=== PATIENT | female | born 1970 | race Caucasian/White ===

== ENCOUNTER 2017-05-17 20:08 | Inpatient (IN) | payer OTHER ==
[~2017-05-17] VITALS: Ht 157.5 cm; Wt 79.5 kg
[2017-05-17 21:53] VITALS: Ht 157.5 cm; Wt 79.5 kg
[2017-05-18 02:16] LABS: BASOPHIL % 0.5 % (0-2); PLATELET COUNT 182 x10^3mcL (130-400)
[2017-05-18 02:22] LABS: RED CELL DISTRIBUTION WIDTH 14.7 % (11.5-14.5)
[2017-05-18 02:24] LABS: BILIRUBIN TOTAL 0.6 mg/dL (0.20-1.00); CALCIUM 8.7 mg/dL (8.5-10.1); CARBON DIOXIDE 34.8 mmol/L (21-32); POTASSIUM SERUM 3.5 mmol/L (3.5-5.1); TOTAL PROTEIN, SERUM 7.3 g/dL (6.4-8.2)
[2017-05-18 02:26] LABS: ALBUMIN 2.7 g/dL (3.4-5.0)
[2017-05-18 02:28] LABS: CREATININE SERUM 4.3 mg/dL (0.6-1.0)
[2017-05-18] MEDS ORDERED: GLIPIZIDE ER2.5 M1 (05:29)
[2017-05-18] MEDS ORDERED: SYNTHROID0.05 MG (05:30)
[2017-05-18] MEDS ORDERED: NIFEDICAL XL30 MG (05:30)
[2017-05-18] MEDS ORDERED: ATORVASTATIN CA40 M1 (05:30)
[2017-05-18 09:03] LABS: T3 TOTAL 0.64 ng/mL
[2017-05-18 09:16] LABS: FREE T4 1.25 ng/dL (0.76-1.46); FREE THYROXINE INDEX 2.8 ug/dL (1.4-4.5); T4(THYROXINE) 7.8 ug/dL (4.7-13.3)
[2017-05-18 09:48] VITALS: BP 123/68
[2017-05-18 10:13] VITALS: BP 123/68
[2017-05-18 10:20] LABS: CHOLESTEROL/HDL RATIO 3.4; PHOSPHOROUS 3.7 mg/dL (2.5-4.9)
[2017-05-18 13:40] VITALS: BP 124/61
[2017-05-18 17:25] VITALS: BP 153/89
[2017-05-18 21:16] VITALS: BP 154/81
[2017-05-19 06:05] VITALS: BP 136/68
[2017-05-19 06:59] LABS: PLATELET COUNT 190 x10^3mcL (130-400); RED CELL DISTRIBUTION WIDTH 14.5 % (11.5-14.5)
[2017-05-19 07:12] LABS: CALCIUM 8.8 mg/dL (8.5-10.1); CARBON DIOXIDE 25.3 mmol/L (21-32); MAGNESIUM 2.2 mg/dL (1.8-2.4); PHOSPHOROUS 4.7 mg/dL (2.5-4.9)
[2017-05-19 07:14] LABS: BASOPHIL % 0 % (0-2)
[2017-05-19 08:42] LABS: CREATININE SERUM 6.3 mg/dL (0.6-1.0)
[2017-05-19 08:53] VITALS: BP 127/60
[2017-05-19 13:06] VITALS: BP 124/62
[2017-05-19] MEDS ORDERED: MEDDP PO (15:18)
[2017-05-19 16:51] VITALS: BP 124/62
[2017-05-19 17:38] VITALS: BP 142/80
[2017-05-19 21:00] VITALS: BP 140/62
[2017-05-19 21:15] LABS: UA SPECIFIC GRAVITY 1.015 (1.005-1.035); microscopic required? YES; urine erythrocyte 1+ (NEGATIVE)
[2017-05-19 21:27] LABS: AMPHETAMINE QUAL UR NONE DETECTED (NEG <=1000)
[2017-05-20 05:54] VITALS: BP 141/73
[2017-05-20 08:30] LABS: CALCIUM 8.5 mg/dL (8.5-10.1); CARBON DIOXIDE 22.5 mmol/L (21-32); POTASSIUM SERUM 3.7 mmol/L (3.5-5.1)
[2017-05-20 08:32] LABS: CREATININE SERUM 7.3 mg/dL (0.6-1.0)
[2017-05-20 08:39] LABS: PLATELET COUNT 212 x10^3mcL (130-400); RED CELL DISTRIBUTION WIDTH 14.3 % (11.5-14.5)
[2017-05-20 08:41] LABS: BASOPHIL % 0 % (0-2)
[2017-05-20 09:06] VITALS: BP 139/69
[2017-05-20 14:10] VITALS: BP 135/70
[2017-05-20 18:00] VITALS: BP 150/80
[2017-05-20 20:38] VITALS: BP 154/76
[2017-05-21 05:07] VITALS: BP 171/90
[2017-05-21 07:14] LABS: BASOPHIL % 0.2 % (0-2); PLATELET COUNT 185 x10^3mcL (130-400)
[2017-05-21 07:21] LABS: CALCIUM 7.9 mg/dL (8.5-10.1); CARBON DIOXIDE 24.1 mmol/L (21-32); MAGNESIUM 1.9 mg/dL (1.8-2.4); PHOSPHOROUS 5.3 mg/dL (2.5-4.9); POTASSIUM SERUM 3.6 mmol/L (3.5-5.1)
[2017-05-21 07:24] LABS: CREATININE SERUM 5.8 mg/dL (0.6-1.0); RED CELL DISTRIBUTION WIDTH 14.7 % (11.5-14.5)
[2017-05-21 09:40] VITALS: BP 145/73
[2017-05-21 12:02] VITALS: BP 117/60; BP 145/73
[2017-05-21] MEDS ORDERED: ADA30 PO (12:03)
[2017-05-21] MEDS ORDERED: LEVEMIR100 U/M1 SQ ×2 (12:04→14:07)
[2017-05-21] MEDS ORDERED: ATORVASTATIN CA40 M1 PO (12:05)
[2017-05-21] MEDS ORDERED: GLU10 PO (12:05)
[2017-05-21] MEDS ORDERED: CLINDAMYCIN300 M1 PO (12:19)
[2017-05-21] MEDS ORDERED: LAC PO (12:19)
[2017-05-21 13:24] VITALS: BP 144/73
[2017-05-21 17:23] VITALS: BP 117/60
== END 2017-05-21 18:34 | disposition home or self-care (01) | DRG 811 ==
LOC: ED 20:08 → DU 05-18 04:29
PROVIDERS: Emergency Medicine; Internal Medicine Nephrology; Student in an Organized Health Care Education/Training Program
PROC: 02H633Z Insertion of Infusion Device into Right Atrium, Percutaneous Approach (ICD-10-PCS; principal; 2017-05-20)
PROC: 5A1D70Z Performance of Urinary Filtration, Intermittent, Less than 6 Hours Per Day (ICD-10-PCS; 2017-05-20)
DX: T78.3XXA Angioneurotic edema, initial encounter (principal); N17.0 Acute kidney failure with tubular necrosis; E43 Unspecified severe protein-calorie malnutrition; I12.0 Hypertensive chronic kidney disease with stage 5 chronic kidney disease or end stage renal disease; N18.6 End stage renal disease; R65.10 Systemic inflammatory response syndrome (SIRS) of non-infectious origin without acute organ dysfunction; E11.21 Type 2 diabetes mellitus with diabetic nephropathy; E87.1 Hypo-osmolality and hyponatremia; E11.65 Type 2 diabetes mellitus with hyperglycemia; D63.1 Anemia in chronic kidney disease; E66.9 Obesity, unspecified; E03.9 Hypothyroidism, unspecified; R09.02 Hypoxemia; Z99.2 Dependence on renal dialysis; Z79.4 Long term (current) use of insulin; Z68.30 Body mass index [BMI] 30.0-30.9, adult; E11.22 Type 2 diabetes mellitus with diabetic chronic kidney disease; E78.00 Pure hypercholesterolemia, unspecified; Z83.3 Family history of diabetes mellitus; Z82.49 Family history of ischemic heart disease and other diseases of the circulatory system; Z90.710 Acquired absence of both cervix and uterus; Z90.721 Acquired absence of ovaries, unilateral
CPT/HCPCS: 76770; 82962; 83880; 84439; 87804; 94150; J1815; J2543; J2920; J2930; J2997; J7030; J7620; Q0092

== ENCOUNTER 2017-10-10 17:20 | Emergency (ER) | payer OTHER ==
[~2017-10-10] VITALS: Ht 162.6 cm; Wt 75.3 kg
[~2017-10-10 17:20] MED LIST: ADA30 PO; ATORVASTATIN CA40 M1; ATORVASTATIN CA40 M1 PO; CLINDAMYCIN300 M1 PO; GLIPIZIDE ER2.5 M1; GLU10 PO; LAC PO; LEVEMIR100 U/M1 SQ; MEDDP PO; NIFEDICAL XL30 MG; SYNTHROID0.05 MG
[2017-10-10 17:27] VITALS: Ht 162.6 cm; Wt 75.3 kg
[2017-10-10 18:45] LABS: CALCIUM 9.4 mg/dL (8.5-10.1); POTASSIUM SERUM 5.4 mmol/L (3.5-5.1)
[2017-10-10 18:53] LABS: CREATININE SERUM 4.5 mg/dL (0.6-1.0)
[2017-10-10 19:52] VITALS: BP 130/82
== END 2017-10-10 20:50 | disposition home or self-care (01) ==
LOC: ED 17:20
PROVIDERS: Specialist
DX: E11.22 Type 2 diabetes mellitus with diabetic chronic kidney disease (principal); I12.9 Hypertensive chronic kidney disease with stage 1 through stage 4 chronic kidney disease, or unspecified chronic kidney disease; N18.9 Chronic kidney disease, unspecified; Z90.49 Acquired absence of other specified parts of digestive tract; Z90.710 Acquired absence of both cervix and uterus
CPT/HCPCS: 82962; J1815

== ENCOUNTER 2018-03-06 18:55 | Inpatient (IN) | payer OTHER ==
[~2018-03-06] VITALS: Ht 154.9 cm; Wt 77.6 kg
[2018-03-06 19:56] LABS: BASOPHIL % 0.4 % (0-2); PLATELET COUNT 331 x10^3mcL (130-400); RED CELL DISTRIBUTION WIDTH 17.9 % (11.5-14.5)
[2018-03-06 20:13] LABS: BILIRUBIN TOTAL 1.1 mg/dL (0.20-1.00); CALCIUM 8.7 mg/dL (8.5-10.1); CARBON DIOXIDE 26.1 mmol/L (21-32); POTASSIUM SERUM 4.5 mmol/L (3.5-5.1); TOTAL PROTEIN, SERUM 7.3 g/dL (6.4-8.2)
[2018-03-06 20:20] LABS: ALBUMIN 3.2 g/dL (3.4-5.0)
[2018-03-06 20:22] LABS: CREATININE SERUM 5.5 mg/dL (0.6-1.0)
[2018-03-06 21:18] LABS: PHOSPHOROUS 4.6 mg/dL (2.5-4.9)
[2018-03-06 21:21] LABS: CHOLESTEROL/HDL RATIO 2.7
[2018-03-06] MEDS ORDERED: SYNTHROID25 MCG PO (21:21)
[2018-03-06 21:59] VITALS: BP 134/63
[2018-03-06 23:46] LABS: microscopic required? YES; urine erythrocyte 2+ (NEGATIVE)
[2018-03-07] LABS: AMPHETAMINE QUAL UR NONE DETECTED (See below)
[2018-03-07 05:18] VITALS: BP 120/93
[2018-03-07 06:01] LABS: BASOPHIL % 0.3 % (0-2); PLATELET COUNT 305 x10^3mcL (130-400)
[2018-03-07 06:53] LABS: MAGNESIUM 2.3 mg/dL (1.8-2.4); PHOSPHOROUS 5.2 mg/dL (2.5-4.9); POTASSIUM SERUM 4.5 mmol/L (3.5-5.1)
[2018-03-07 07:05] LABS: CREATININE SERUM 6.2 mg/dL (0.6-1.0)
[2018-03-07 07:15] LABS: RED CELL DISTRIBUTION WIDTH 18.1 % (11.5-14.5)
[2018-03-07 08:19] VITALS: BP 103/60
[2018-03-07 12:24] VITALS: BP 101/48
[2018-03-07 16:40] VITALS: BP 104/40
[2018-03-07 20:29] VITALS: BP 120/60
[2018-03-08 05:10] VITALS: BP 134/71
[2018-03-08 10:04] VITALS: BP 109/66
[2018-03-08 14:20] VITALS: BP 106/62
[2018-03-08 17:45] VITALS: BP 123/63
[2018-03-09] VITALS (7 sets, daily range): BP systolic 95–132; BP diastolic 45–69
[2018-03-09 06:53] LABS: BASOPHIL % 0.5 % (0-2); PLATELET COUNT 277 x10^3mcL (130-400)
[2018-03-09 06:59] LABS: RED CELL DISTRIBUTION WIDTH 17.1 % (11.5-14.5)
[2018-03-09 07:06] LABS: CALCIUM 8.7 mg/dL (8.5-10.1); CARBON DIOXIDE 27.8 mmol/L (21-32); MAGNESIUM 1.7 mg/dL (1.8-2.4); PHOSPHOROUS 4.6 mg/dL (2.5-4.9); POTASSIUM SERUM 3.8 mmol/L (3.5-5.1)
[2018-03-09 07:09] LABS: CREATININE SERUM 4.3 mg/dL (0.6-1.0)
[2018-03-10 05:10] LABS: BASOPHIL % 0.5 % (0-2); PLATELET COUNT 252 x10^3mcL (130-400)
[2018-03-10 05:20] LABS: RED CELL DISTRIBUTION WIDTH 18.9 % (11.5-14.5)
[2018-03-10 05:40] LABS: CALCIUM 8.5 mg/dL (8.5-10.1); CARBON DIOXIDE 27.5 mmol/L (21-32); MAGNESIUM 1.8 mg/dL (1.8-2.4); PHOSPHOROUS 5.8 mg/dL (2.5-4.9); POTASSIUM SERUM 3.8 mmol/L (3.5-5.1)
[2018-03-10 05:44] VITALS: BP 121/65
[2018-03-10 05:46] LABS: CREATININE SERUM 6.6 mg/dL (0.6-1.0)
[2018-03-10 09:17] VITALS: BP 117/60
[2018-03-10 12:02] VITALS: BP 108/61
[2018-03-10 15:17] VITALS: BP 106/58
[2018-03-10 19:20] VITALS: BP 106/57
[2018-03-10 23:05] VITALS: BP 144/76
[2018-03-11 03:04] VITALS: BP 144/76
[2018-03-11 04:52] LABS: BASOPHIL % 0.6 % (0-2); PLATELET COUNT 220 x10^3mcL (130-400); RED CELL DISTRIBUTION WIDTH 18.3 % (11.5-14.5)
[2018-03-11 05:12] LABS: BILIRUBIN TOTAL 0.8 mg/dL (0.20-1.00); CALCIUM 8.3 mg/dL (8.5-10.1); MAGNESIUM 1.8 mg/dL (1.8-2.4); PHOSPHOROUS 6.1 mg/dL (2.5-4.9); TOTAL PROTEIN, SERUM 6.8 g/dL (6.4-8.2)
[2018-03-11 05:20] LABS: ALBUMIN 2.5 g/dL (3.4-5.0)
[2018-03-11 05:21] LABS: CREATININE SERUM 6.5 mg/dL (0.6-1.0)
[2018-03-11 08:30] VITALS: BP 110/51
[2018-03-11 08:40] VITALS: Ht 154.9 cm; Wt 77.6 kg
[2018-03-11 12:30] VITALS: BP 128/69
[2018-03-11 16:45] VITALS: BP 118/65
[2018-03-11 19:40] VITALS: BP 117/62
[2018-03-12] VITALS (7 sets, daily range): BP systolic 100–129; BP diastolic 57–75
[2018-03-12 05:06] LABS: BASOPHIL % 0.9 % (0-2); PLATELET COUNT 235 x10^3mcL (130-400)
[2018-03-12 05:25] LABS: CALCIUM 8.3 mg/dL (8.5-10.1); CARBON DIOXIDE 26.4 mmol/L (21-32); MAGNESIUM 1.8 mg/dL (1.8-2.4); PHOSPHOROUS 6.9 mg/dL (2.5-4.9); POTASSIUM SERUM 3.6 mmol/L (3.5-5.1)
[2018-03-12 05:26] LABS: RED CELL DISTRIBUTION WIDTH 17.4 % (11.5-14.5)
[2018-03-12 05:30] LABS: CREATININE SERUM 8.4 mg/dL (0.6-1.0)
[2018-03-13 03:31] VITALS: BP 111/65
[2018-03-13 05:42] LABS: CALCIUM 8.3 mg/dL (8.5-10.1); CARBON DIOXIDE 27.1 mmol/L (21-32); MAGNESIUM 1.9 mg/dL (1.8-2.4); PHOSPHOROUS 4.8 mg/dL (2.5-4.9); POTASSIUM SERUM 3.6 mmol/L (3.5-5.1)
[2018-03-13 05:47] LABS: BASOPHIL % 0.4 % (0-2); PLATELET COUNT 218 x10^3mcL (130-400)
[2018-03-13 05:52] LABS: RED CELL DISTRIBUTION WIDTH 17.8 % (11.5-14.5)
[2018-03-13 05:54] LABS: CREATININE SERUM 5.7 mg/dL (0.6-1.0)
[2018-03-13 08:00] VITALS: BP 101/60
[2018-03-13 11:08] VITALS: BP 102/53
[2018-03-13 15:20] VITALS: BP 91/40
[2018-03-13 16:38] VITALS: BP 91/40
[2018-03-14 04:27] LABS: BASOPHIL % 0.6 % (0-2); PLATELET COUNT 227 x10^3mcL (130-400)
[2018-03-14 04:29] LABS: RED CELL DISTRIBUTION WIDTH 17.7 % (11.5-14.5)
[2018-03-14 04:39] LABS: PHOSPHOROUS 5.1 mg/dL (2.5-4.9)
[2018-03-14 05:26] VITALS: BP 117/60
[2018-03-14 08:36] VITALS: BP 110/60
[2018-03-14 12:00] VITALS: BP 118/59
[2018-03-14 17:57] VITALS: BP 118/59
[2018-03-14 20:54] VITALS: BP 111/59
[2018-03-15 05:01] VITALS: BP 112/58
[2018-03-15 06:28] LABS: BASOPHIL % 0.5 % (0-2); PLATELET COUNT 233 x10^3mcL (130-400)
[2018-03-15 06:49] LABS: CALCIUM 8.4 mg/dL (8.5-10.1); CARBON DIOXIDE 27.9 mmol/L (21-32); MAGNESIUM 1.7 mg/dL (1.8-2.4); PHOSPHOROUS 4.2 mg/dL (2.5-4.9)
[2018-03-15 06:53] LABS: RED CELL DISTRIBUTION WIDTH 17.6 % (11.5-14.5)
[2018-03-15 06:54] LABS: CREATININE SERUM 5.7 mg/dL (0.6-1.0)
[2018-03-15 09:40] VITALS: BP 111/55
[2018-03-15 12:45] VITALS: BP 110/56
[2018-03-15 16:50] VITALS: BP 113/60
[2018-03-15 21:11] VITALS: BP 112/50
[2018-03-16 05:16] VITALS: BP 113/54
[2018-03-16 07:33] LABS: PHOSPHOROUS 4.3 mg/dL (2.5-4.9)
[2018-03-16 07:38] LABS: BASOPHIL % 0.3 % (0-2); CALCIUM 8.9 mg/dL (8.5-10.1); CARBON DIOXIDE 26.2 mmol/L (21-32); PLATELET COUNT 268 x10^3mcL (130-400); POTASSIUM SERUM 3.2 mmol/L (3.5-5.1)
[2018-03-16 07:41] LABS: CREATININE SERUM 8.4 mg/dL (0.6-1.0)
[2018-03-16 07:45] LABS: RED CELL DISTRIBUTION WIDTH 16.1 % (11.5-14.5)
[2018-03-16 08:29] VITALS: BP 106/56
[2018-03-16 11:53] VITALS: BP 102/57
[2018-03-16 16:33] VITALS: BP 127/61
[2018-03-16 21:54] VITALS: BP 113/56
[2018-03-17 05:08] VITALS: BP 104/50
[2018-03-17 07:14] LABS: BASOPHIL % 0.5 % (0-2); PLATELET COUNT 265 x10^3mcL (130-400)
[2018-03-17 07:16] LABS: RED CELL DISTRIBUTION WIDTH 17.4 % (11.5-14.5)
[2018-03-17 07:44] LABS: CARBON DIOXIDE 29.8 mmol/L (21-32); POTASSIUM SERUM 3.6 mmol/L (3.5-5.1)
[2018-03-17 07:45] LABS: CREATININE SERUM 6.9 mg/dL (0.6-1.0)
[2018-03-17 08:09] VITALS: BP 115/54
[2018-03-17 08:25] VITALS: BP 115/54
[2018-03-17 12:08] VITALS: BP 112/66
[2018-03-17 16:53] VITALS: BP 143/75
[2018-03-17 21:28] VITALS: BP 127/68
[2018-03-18 05:41] VITALS: BP 120/668; BP 120/68
[2018-03-18 07:01] LABS: CALCIUM 8.9 mg/dL (8.5-10.1); CARBON DIOXIDE 25.2 mmol/L (21-32); PHOSPHOROUS 4.4 mg/dL (2.5-4.9); POTASSIUM SERUM 4.2 mmol/L (3.5-5.1)
[2018-03-18 07:03] LABS: CREATININE SERUM 8.9 mg/dL (0.6-1.0)
[2018-03-18 08:43] LABS: BASOPHIL % 0.7 % (0-2); PLATELET COUNT 258 x10^3mcL (130-400)
[2018-03-18 09:00] VITALS: BP 120/54
[2018-03-18 13:30] VITALS: BP 112/57
[2018-03-18 17:10] VITALS: BP 112/58
[2018-03-18 21:30] VITALS: BP 102/55
[2018-03-19 04:51] VITALS: BP 114/50
[2018-03-19 06:48] LABS: CALCIUM 9.2 mg/dL (8.5-10.1); POTASSIUM SERUM 3.5 mmol/L (3.5-5.1)
[2018-03-19 07:08] LABS: CREATININE SERUM 6.6 mg/dL (0.6-1.0)
[2018-03-19 09:59] VITALS: BP 100/47
[2018-03-19 13:21] VITALS: BP 106/48
[2018-03-19 17:00] VITALS: BP 105/48
[2018-03-19 20:56] VITALS: BP 107/59
[2018-03-20 06:30] VITALS: BP 116/58
[2018-03-20 07:03] LABS: CARBON DIOXIDE 30.4 mmol/L (21-32); POTASSIUM SERUM 3.5 mmol/L (3.5-5.1)
[2018-03-20 08:08] VITALS: BP 129/53
[2018-03-20 08:16] LABS: BASOPHIL % 0.3 % (0-2); PLATELET COUNT 254 x10^3mcL (130-400)
[2018-03-20 08:17] LABS: RED CELL DISTRIBUTION WIDTH 17.1 % (11.5-14.5)
[2018-03-20 12:05] VITALS: BP 121/58
[2018-03-20 16:30] VITALS: BP 124/56
[2018-03-20 21:02] VITALS: BP 123/52
[2018-03-21] VITALS (7 sets, daily range): BP systolic 101–115; BP diastolic 43–58
[2018-03-21 06:31] LABS: BASOPHIL % 0.5 % (0-2); PLATELET COUNT 278 x10^3mcL (130-400)
[2018-03-21 06:37] LABS: CALCIUM 9.3 mg/dL (8.5-10.1); CARBON DIOXIDE 26.2 mmol/L (21-32); POTASSIUM SERUM 3.4 mmol/L (3.5-5.1)
[2018-03-21 06:39] LABS: CREATININE SERUM 7.5 mg/dL (0.6-1.0)
[2018-03-21 06:40] LABS: CREATININE SERUM 5.4 mg/dL (0.6-1.0)
[2018-03-21 07:06] LABS: RED CELL DISTRIBUTION WIDTH 15.7 % (11.5-14.5)
[2018-03-22 05:37] VITALS: BP 122/55
[2018-03-22 06:29] LABS: BASOPHIL % 0.7 % (0-2); PLATELET COUNT 269 x10^3mcL (130-400)
[2018-03-22 06:51] LABS: RED CELL DISTRIBUTION WIDTH 16.8 % (11.5-14.5)
[2018-03-22 07:07] LABS: CALCIUM 9.2 mg/dL (8.5-10.1); CARBON DIOXIDE 26.9 mmol/L (21-32); POTASSIUM SERUM 3.4 mmol/L (3.5-5.1)
[2018-03-22 07:39] VITALS: BP 116/55
[2018-03-22 12:08] VITALS: BP 107/48
[2018-03-22 16:05] VITALS: BP 122/66
[2018-03-22 21:19] VITALS: BP 126/63
[2018-03-23 05:18] VITALS: BP 114/50
[2018-03-23 07:04] LABS: BASOPHIL % 0.5 % (0-2); PLATELET COUNT 273 x10^3mcL (130-400)
[2018-03-23 07:13] LABS: CALCIUM 9.5 mg/dL (8.5-10.1); CARBON DIOXIDE 24.2 mmol/L (21-32); PHOSPHOROUS 3.3 mg/dL (2.5-4.9); POTASSIUM SERUM 3.8 mmol/L (3.5-5.1)
[2018-03-23 07:18] LABS: CREATININE SERUM 5.3 mg/dL (0.6-1.0)
[2018-03-23 07:28] LABS: RED CELL DISTRIBUTION WIDTH 16.5 % (11.5-14.5)
[2018-03-23 08:37] VITALS: BP 116/61
[2018-03-23 13:01] VITALS: BP 112/52
[2018-03-23 17:30] VITALS: BP 122/62
[2018-03-23 21:40] VITALS: BP 99/54
[2018-03-24 04:54] VITALS: BP 128/61
[2018-03-24 06:43] LABS: PLATELET COUNT 271 x10^3mcL (130-400)
[2018-03-24 06:47] LABS: RED CELL DISTRIBUTION WIDTH 16.7 % (11.5-14.5)
[2018-03-24 06:50] LABS: CALCIUM 9.7 mg/dL (8.5-10.1); CARBON DIOXIDE 24.7 mmol/L (21-32); POTASSIUM SERUM 3.5 mmol/L (3.5-5.1)
[2018-03-24 06:54] LABS: CREATININE SERUM 7.5 mg/dL (0.6-1.0)
[2018-03-24 08:30] VITALS: BP 113/55
[2018-03-24 10:46] LABS: ATYPICAL LYMPH 3 %; BAND NEUTROPHIL 0 % (0-10); BASOPHIL 0 % (0-2); MONOCYTE 11 % (0-7); SEGMENTED NEUTROPHILS 86 % (37-75)
[2018-03-24 10:47] LABS: PLATELET MORPHOLOGY PLATELETS DECREASED; rbc morphology (normal/abnorm) ABNORMAL (NORMAL)
[2018-03-24 12:15] VITALS: BP 120/64
[2018-03-24] MEDS ORDERED: IPRATROPIUM BROM3 M2 HHN (12:47)
[2018-03-24] MEDS ORDERED: XOP0.63 HHN (12:47)
[2018-03-24] MEDS ORDERED: BG FS (12:48)
[2018-03-24] MEDS ORDERED: LEVEMIR100 U/M1 SQ (12:48)
[2018-03-24] MEDS ORDERED: METOPROLOL TART25 M1 PO (12:48)
[2018-03-24] MEDS ORDERED: REN800 PO (12:48)
[2018-03-24] MEDS ORDERED: HEP5I SC (12:48)
[2018-03-24] MEDS ORDERED: HUMULIN R100 U/1 M1 SC (12:49)
[2018-03-24] MEDS ORDERED: HUM7525 SQ (12:49)
[2018-03-24] MEDS ORDERED: NOVAPLUS ZOSYN50 M1 IV (12:51)
[2018-03-24 13:34] VITALS: BP 120/64
[2018-03-24 16:26] VITALS: BP 91/45
[2018-03-24 17:08] VITALS: BP 147/69
== END 2018-03-24 19:17 | disposition short-term general hospital (02) | DRG 291 ==
LOC: ED 18:55 → IC 20:44 → DU 20:44 → IC 03-10 09:47 → DU 03-14 17:22
PROVIDERS: Emergency Medicine; Family Medicine; Internal Medicine; Internal Medicine Nephrology
PROC: 05HM33Z Insertion of Infusion Device into Right Internal Jugular Vein, Percutaneous Approach (ICD-10-PCS; principal; 2018-03-10)
DX: I13.2 Hypertensive heart and chronic kidney disease with heart failure and with stage 5 chronic kidney disease, or end stage renal disease (principal); N18.6 End stage renal disease; I50.43 Acute on chronic combined systolic (congestive) and diastolic (congestive) heart failure; J96.21 Acute and chronic respiratory failure with hypoxia; N17.0 Acute kidney failure with tubular necrosis; I50.33 Acute on chronic diastolic (congestive) heart failure; E87.1 Hypo-osmolality and hyponatremia; E44.1 Mild protein-calorie malnutrition; B37.49 Other urogenital candidiasis; I48.91 Unspecified atrial fibrillation; E11.22 Type 2 diabetes mellitus with diabetic chronic kidney disease; E11.65 Type 2 diabetes mellitus with hyperglycemia; D63.1 Anemia in chronic kidney disease; E03.9 Hypothyroidism, unspecified; R80.9 Proteinuria, unspecified; E78.49 Other hyperlipidemia; G47.33 Obstructive sleep apnea (adult) (pediatric); Z99.2 Dependence on renal dialysis; Z79.4 Long term (current) use of insulin; Z79.84 Long term (current) use of oral hypoglycemic drugs; Z68.35 Body mass index [BMI] 35.0-35.9, adult
CPT/HCPCS: 36556; 36600; 82962; 83880; 85378; 87804; 94150; 97110-GP; 97116-GP; 97530-GP; A9540; J0282; J1642; J1644; J1815; J1940; J2060; J2270; J2543; J3490; J7030; J7040; J7050; J7620; Q0092; Q9967

== ENCOUNTER 2019-03-25 16:00 | Inpatient (IN) | payer OTHER ==
[~2019-03-25] VITALS: Ht 160 cm; Wt 75.0 kg
[~2019-03-25 16:00] MED LIST changes: +BG FS; +HEP5I SC; +HUM7525 SQ; +HUMULIN R100 U/1 M1 SC; +IPRATROPIUM BROM3 M2 HHN; +METOPROLOL TART25 M1 PO; +NOVAPLUS ZOSYN50 M1 IV; +REN800 PO; +SYNTHROID25 MCG PO; +XOP0.63 HHN
--- NOTE | 2019-03-25 19:40 | NUR ---
PT COEMS INTO ED WITH COMPLAINT OF RIGHT LEG PAIN X5 DAYS 9/10 THROBBING PAIN IN QUALITY. ON ASSESSMENT RIGHT LOWER EXTREMITY HAS NOTED SWELLING AND ERYTHEMA TO RIGHT CALF AREA, RLE +PULSE MODERATE. PT DENIES ANY SOB OR TROUBLE BREATHING. PT AOX4 ABLE TO RESPOND TO COMMANDS, MAKE NEEDS KNOWN, LUGN SOUNDS CTAB, CHEST RISE/FALL SYMMETRIC, E/U BREATHING, NO ACUTE DISTRESS. AWAITING MSE.
--- NOTE | 2019-03-25 19:53 | NUR ---
DR. MCLAIN AT BEDSIDE FOR MSE.
--- NOTE | 2019-03-25 20:16 | NUR ---
RIDE ATTENDANT AT BEDSIDE FOR BLOOD CULTURE LAB
--- NOTE | 2019-03-25 20:35 | NUR ---
MERCERIZING RANGE CONTROLLER AT BEDSIDE FOR ULTRASOUND OF RLE
[2019-03-25 20:53] LABS: PLATELET COUNT 212 x10^3mcL (130-400); RED CELL DISTRIBUTION WIDTH 14.1 % (11.5-14.5)
[2019-03-25 20:54] LABS: BASOPHIL % 0 % (0-2)
--- NOTE | 2019-03-25 21:00 | NUR ---
DIRECTOR OF ACQUISITIONS REMAINS AT BEDSIDE FOR ULTRASOUND
--- NOTE | 2019-03-25 21:05 | NUR ---
UNSUCCESFUL IV ATTEMPT X2 AT THIS TIME TO RIGHT UPPER EXTREMITY
[2019-03-25 21:19] LABS: BILIRUBIN TOTAL 0.91 mg/dL (0.20-1.00); CALCIUM 9.1 mg/dL (8.5-10.1); CARBON DIOXIDE 27.6 mmol/L (21-32); POTASSIUM SERUM 4.6 mmol/L (3.5-5.1); TOTAL PROTEIN, SERUM 8.1 g/dL (6.4-8.2)
[2019-03-25 21:31] LABS: ALBUMIN 3.2 g/dL (3.4-5.0); CREATININE SERUM 4.2 mg/dL (0.6-1.0)
[2019-03-25] MEDS ORDERED: LEVOTHYROXIN0.125 M2 PO (21:35)
--- NOTE | 2019-03-25 21:45 | NUR ---
PT SATURATING @ 92% ON PULSE OXIMETRY, 2L NC ATTACHED TO PATIENT. PATIENT NOW SATURATING AT 100%, NO SOB OR DISTERSS.
--- NOTE | 2019-03-25 23:15 | NUR ---
GAVE REPORT TO GEE RAZA. UPDATES PROVIDED, QUESTIONS ANSWERED.
--- NOTE | 2019-03-25 23:56 | NUR ---
PT TRANSFERRED TO MED/SURG BED 260B VIA [facility] WITH EMT ROSA. PT A&OX4,NO ACUTE DISTRESS NOTED, RESP EVEN AND UNLABORED, TRANSFERRED WITHOUT INCIDENCE.
[2019-03-26 00:12] VITALS: BP 142/54
--- NOTE | 2019-03-26 00:35 | NUR ---
RECEIVED FROM ER, TRANSPORTED VIA [facility]. AWAKE, SOMEWHAT DROWY, ORIENTED TO NAME, PLACE, TIME AND SITUATION. CALM AND COOPERATIVE WITH CARE, ABLE TO MAKE NEEDS KNOWN. BREATHING EVEN AND UNLABORED ON 2LPM OF O2 VIA NC. LUNG SOUNDS CLEAR. WITH IVF AT TKO RATE OF NS INFUSING TO RIGHT HAND. IV SITE FREE FROM REDNESS OR SWELLING. REDNESS AND NON PITTING EDEMA TO POSTERIOR OF RIGHT KNEE DOWN TO POSTERIOR UPPER CALF. PAIN AND TENDER WHEN TOUCHED. PHOTODOCUMENTED. DIALYSIS SHUNT TO LEFT ARM, POSITIVE FOR THRILS. DRESSING INTACT. PLACED RESTRICTED ARM BAND TO LEFT ARM. INSTRUCTED ON USE OF CALL LIGHT TO CALL FOR ASSISTANCE. PLACED WITHIN EASY REACH. PROVIDED WITH WARM BLANKET.
--- NOTE | 2019-03-26 00:57 | NUR ---
EYES CLOSED, BREATHING UNLABORED. CALL LIGHT WITHIN EASY REACH.
--- NOTE | 2019-03-26 02:00 | NUR ---
DR. KELLY STATED TO CHECK BLOOD SUGAR. BLOOD SUGAR CHECKED, 522, TEST REPEATED 556. INFORMED DR. KELLY. SHE STATED TO GO AHEAD ADMINISTER REGULAR INSULIN PER SLIDING SCALE. ADMINISTERED REGULAR INSULIN [address] KELLY STATED SHE WILL ORDER LANTUS
--- NOTE | 2019-03-26 06:00 | NUR ---
BINDERY PRODUCTION MANAGER IN PT'S ROOM
[2019-03-26 06:38] VITALS: BP 126/56
--- NOTE | 2019-03-26 07:03 | NUR ---
eyes closed, easily awakened. breathing even and unlabored. call light within easy reach. saline lock. endorsed to nurse james
--- NOTE | 2019-03-26 07:15 | NUR ---
AAO X4.C/O MILD R KNEE/CALF PAIN AT 4/10 PAIN SCALE.LUNG SOUND DIM ON THE BASES.IV SALINE LOCKED.PT NONE TELE.CALL LIGHT WITHIN REACH.INSTRUCTED TO CALL FOR ANY PAIN/DISCOMFORT.WILL CONTINUE TO MONITOR PT.
[2019-03-26 08:32] VITALS: BP 120/54
--- NOTE | 2019-03-26 08:32 | NUR ---
PT'S T=101.7.COLD COMPRESS DONE.ALSO GAVE PT TYLENOL 650 MG PO.WILL INFORM THE DOCTOR.
--- NOTE | 2019-03-26 09:32 | NUR ---
RECHECKED T=100.7 AFTER COLD COMPRESS AND TYLENOL.
[2019-03-26 16:20] VITALS: BP 138/64
--- NOTE | 2019-03-26 18:40 | NUR ---
PT ATE 10% OF DINNER.CLAIMS NOT TO BE HUNGRY.
--- NOTE | 2019-03-26 18:41 | NUR ---
NO SIGNIFICANT CHANGE NOTED.WILL ENDORSE TO NEXT SHIFT.
--- NOTE | 2019-03-26 19:56 | NUR ---
RECEIVED IN BED APPARENTLY RESTING AT THIS TIME. EYES CLOSED, NO FACIAL GRIAMCING NOTED. RESPIRATION EVEN AND UNLABORED. SKIN WARM AND DRY TO TOUCH WITH AV SHUNT ON THE LEFT ARM, GOOD THRILL AND BRUIT. CALL LIGHT WITHIN REACH.
[2019-03-26 21:38] VITALS: BP 143/67
--- NOTE | 2019-03-27 00:10 | NUR ---
PT ACCIDENTALLY PULLED OUT IV ACCESS AT THE RFA WITH MODERATE BLEEDING NOTED. PRESSURE DRESSING APPLIED TO AFFECTED AREA. KEPT CLEAN AND DRY. ALL LINENES CAHNGE. PARTIAL BATH GIVEN TOELRATED WELL. NEW IV ACCESS STARTED AT THE RFA USING G#22 WITH GOOD BLOOD FLOW RETURN. CALL LIGHT WITHIN REACH.
--- NOTE | 2019-03-27 00:32 | NUR ---
PT ASLEEP DURING THE EB=ND SHIFT RPORT. SKIN WARM AND DRY TO TOUCH. RESPIRATION EVEN AND UNLABORED. NO S/S OF ACUTE RESPIATORY DISTRESS. CALL LIGTHWITHIN REACH. WILL CONTINUE TO MONITOR,
[2019-03-27 05:31] VITALS: BP 112/50
--- NOTE | 2019-03-27 06:02 | NUR ---
CONTINUES ON ATB IVPB WITHOUT ADVERSE REACTION NOTED, KEPT CLEAN AND DRY. ALL NEEDS ATTENDED.
[2019-03-27 06:53] LABS: PLATELET COUNT 219 x10^3mcL (130-400); RED CELL DISTRIBUTION WIDTH 14.2 % (11.5-14.5)
[2019-03-27 07:09] LABS: BASOPHIL % 0 % (0-2)
[2019-03-27 07:18] LABS: CALCIUM 8.9 mg/dL (8.5-10.1); CARBON DIOXIDE 28.3 mmol/L (21-32); MAGNESIUM 2.2 mg/dL (1.8-2.4); PHOSPHOROUS 5.1 mg/dL (2.5-4.9); POTASSIUM SERUM 3.8 mmol/L (3.5-5.1)
--- NOTE | 2019-03-27 07:30 | NUR ---
A&OX4, LETHARGIC. ABLE TO FOLLOW COMMANDS AND COOPERATES WELL. MED-SURG PATIENT, DENIES CHEST PAIN. NONPITTING EDEMA IN EXTREMITIES BUT PERIPHERAL PUSLES PALPABLE. LUNG SOUNDS ARE CLEAR, ON 2L NC, 94% O2 SAT. HYPOACTIVE BSX4. HEMODIALYSIS PATIENT (T, TH, SAT) AND IS SCHEDULED TO HAVE HD THIS AFTERNOON. L AV SHUNT POSITIVE FOR BRUIT AND THRILL. GENERALIZED WEAKNESS AND WORKS WITH PT. POSTERIOR RIGHT KNEE HAS REDNESS AND IS TENDER TO TOUCH DUE TO CELLULITIS ON LEG. RFA IV SITE IS CDI. WILL CONTINUE TO MONITOR PATIENT FOR PAIN AND WORSENING INFECTION.
[2019-03-27 07:49] LABS: CREATININE SERUM 6.9 mg/dL (0.6-1.0)
[2019-03-27 08:58] VITALS: BP 119/57
[2019-03-27 16:53] VITALS: BP 112/49
--- NOTE | 2019-03-27 16:59 | NUR ---
PATIENT HAS BEGUN HEMODIALYSIS WITH HD NURSE. WILL CONTINUE TO ASSESS AND MONITOR PATIENT STATUS.
--- NOTE | 2019-03-27 17:15 | NUR ---
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 OIL OPERATOR ORDERED MUPROCIN AND HIBICLENS SOLUTION TO BE GIVEN, WELL CONTACT ISOLATION. NO FURTHER ORDERS AT THIS TIME.
--- NOTE | 2019-03-27 18:17 | NUR ---
PATIENT REMAINS A&OX4. PATIENT IS LESS LETHARGIC BUT STILL SLEEPS FREQUENTLY THROUGHOUT THE DAY. PATIENT STATES MILD PAIN ON RIGHT LEG. MANAGED WITH PAIN MEDICATION. SEE CHART FOR FURTHER DETAILS. PATIENT REMAINS RESTING IN BED WHILE EATING DINNER. ALL QUESTIONS AND CONCERNS HAVE BEEN ADDRESSED. WILL CONTINUE TO MONITOR.
--- NOTE | 2019-03-27 20:27 | NUR ---
PT CURRENTLY RESTING IN BED, NO ACUTE DISTRESS. A/O X4. NO TELE, MED/SURG. DENIES CHEST PAIN. PULSES PALPABLE IN ALL EXTREMITIES, TRACE RLE EDEMA NOTED. LUNG SOUNDS CTA BILATERALLY, DENIES SOB, RECEIVING O2 VIA NC AT 2L. BOWEL SOUNDS ACTIVE, LAST BM 03/25/19. AV SHUNT TO [facility], LAST HD 03/27/19, 1L OUT. GENERALIZED WEAKNESS, AMBULATORY WITH ASSIST. POSTERIOR RIGHT KNEE ERRYTHEMA, WATER/WASTEWATER ENGINEER, TENDER TO TOUCH. IV PATENT AND INTACT. BED IN LOWEST POSITION, SIDE RAILS UP X2, CALL LIGHT WITHIN REACH. WILL CONTINUE TO MONITOR.
[2019-03-27 21:00] VITALS: BP 129/63
--- NOTE | 2019-03-28 01:11 | NUR ---
PT CURRENTLY RESTING IN BED, NO ACUTE DISTRESS. WILL CONTINUE TO MONITOR.
[2019-03-28 06:12] VITALS: BP 117/54
--- NOTE | 2019-03-28 07:11 | NUR ---
PT SLEPT PERIODICALLY THROUGHOUT NIGHT, NO ACUTE DISTRESS. ALL NEEDS MET AND ATTENDED TO. NO SIGNIFICANT CHANGES. IV SITE FOUND SWOLLEN, DC'D, CATHETER INTACT. NEW IV START ATTEMPTED, UNABLE TO SECURE. CARE ENDORSED TO BERTHA FLYNN. BED IN LOWEST POSITION, SIDE RAILS UP X2, CALL LIGHT WITHIN REACH.
--- NOTE | 2019-03-28 07:30 | NUR ---
A&OX4, COOPERATES WELL AND FOLLOWS COMMANDS. MED-SURG PATIENT, DENIES CHEST PAIN. PERIHERAL PULSES PALPABLE, W/ TRACE EDEMA ON RIGHT LEG. HYPOACTIVE BSX4, HEMODIALYSIS PATIENT (FRIDAY, FRIDAY, FRIDAY). NICA AV SHUNT PALPABLE FOR THRILL AND BRUIT PRESENT. GENERALIZED WEAKNESS AND PAIN ON THE RIGHT LEG INHIBITS MOVEMENT. HOWEVER, ABLE TO TEND TO OWN NEEDS SUCH EATING. POSTERIOR RIGHT KNEE ERYTHEMA PRESENT. IV HAS BEEN DC BY SEAFOOD TEAM MEMBER NURSE. WILL INSERT A NEW IV. WILL CONTINUE TO MONITOR PAIN AND RESPIRATORY STATUS.
[2019-03-28 07:47] LABS: CALCIUM 9.1 mg/dL (8.5-10.1); CARBON DIOXIDE 28.9 mmol/L (21-32); MAGNESIUM 1.9 mg/dL (1.8-2.4); POTASSIUM SERUM 4.4 mmol/L (3.5-5.1)
[2019-03-28 07:53] LABS: CREATININE SERUM 7.1 mg/dL (0.6-1.0)
[2019-03-28 07:58] LABS: PLATELET COUNT 226 x10^3mcL (130-400); RED CELL DISTRIBUTION WIDTH 14.2 % (11.5-14.5)
[2019-03-28 08:51] LABS: BAND NEUTROPHIL 5 % (0-10); BASOPHIL 0 % (0-2); MONOCYTE 6 % (0-7); SEGMENTED NEUTROPHILS 76 % (37-75); rbc morphology (normal/abnorm) ABNORMAL (NORMAL)
--- NOTE | 2019-03-28 09:22 | NUR ---
NOTIFIED PARATRANSIT OPERATOR OF WBC CRITICAL LAB VALUE: 20.5 AND CREATININE CRITICAL LAB VALUE: 7.1. NO ORDERS WERE GIVEN. ASSESS PATIENT STATUS AND PATIENT DENIED FEVER WHILE ALSO HAVING VITAL SIGNS THAT WERE STABLE. WILL CONTINUE TO MONITOR.
[2019-03-28 09:23] VITALS: BP 99/43
--- NOTE | 2019-03-28 09:50 | NUR ---
Initial Nutrition Assessment- Dx: bilateral leg cellulitis PMHx: ESRD, hypothyroidism, DM PSHx: None Labs: (03/28) Na 135 L, K 4.4, Glu 211 H, BUN 41 H, Cr 7.1 H, A1c 11.7 H, h/H 9.8/29. Meds: Colace, D50%/water, Humulin R, lantus, Lipitor, morphine sulfate, norco, sodium chl 0.9%, Synthroid, Tylenol, vancocin, Zofran, zosyn Diet: [facility] PO Intakes: (03/26) B: 10%, L: 40%, D: 10%, (03/27) B: 40%; overall average: 25%, providing ~428 kcal and 26 gm protein; INADEQUATE Ht: 160.02 cm / 63 inches / 5'3" Wt: 75.466 kg / 166 pounds BMI: 29.4 kg/m2, overweight IBW: 115 pounds / 52 kg %IBW: 144% UBW: Unknown Age: 48 Food Allergies: No Known Food Allergies Skin: posterior rt knee erythema Iggy 20 Edema: RLE trace edema GI: Last BM 03/25/19 Pt admitted with dx: rt knee pain possibly secondary to septic arthritis with cellulitis, ESRD (dialysis TTS), DMOOC, hx HLD, hx hypothyroidism, DVT prophylaxis. Pt receiving HD in hospital during stay. Problem with: N: no V: no D: no C: no Problems with: Chewing: no Swallowing: no Current appetite: fair/poor Recent wt changes: fluctuates d/t fluid shifts related to HD Vitamin/Supplement: renal MVI Special Diet at Home: renal/DM Physical activity: none Education: Pt receives ongoing education on renal and DM diets at [facility] where she regularly attends dialysis tx. Pt declined further diet education discussion from RDN today (03/28) due to desire to focus more on admitting dx of leg cellulitis. RDN provided Pt with handouts from [employer]: "Understanding Diabetes" and "Eating Right with Diabetes." RDN provided Pt with handouts from [employer]: "Dietary Guidelines for Adults Starting on Hemodialysis." Pt accepted handouts. Estimated Nutritional Needs Based on ideal body weight of 52 kg. Energy: 7052-9677 kcal/d (30-35 kcal/kg for ESRD) Protein: 62-78 gm/d (1.2-1.5 gm/kg for ESRD) Fluid: 7414-6273 mL/d (1 mL/kcal) or per MD (d/t ESRD on HD) Nutrition Diagnosis 1. Increased nutrient need related to renal dysfunction as evidenced by Pt with ESRD on HD. Intervention/RDN Recommendation(s): 1. Recommend continue on CCHO diet as tolerated. 2. Recommend adding renal restriction to current diet order. Monitor/Evaluate Goal: Intake via PO intakes to meet at least 75% of estimated needs with acceptable tolerance within 3-5 days. Monitor: PO intakes and/or nutrition support tolerance, Labs, GI function, Skin integrity, Weights. F/U in 3-5 days as moderate risk (03/31-)
--- NOTE | 2019-03-28 09:50 | NUR ---
Intervention/RDN Recommendation(s): 1. Recommend continue on CCHO diet as tolerated. 2. Recommend adding renal restriction to current diet order.
--- NOTE | 2019-03-28 14:27 | NUR ---
4 ATTEMPTS HAVE BEEN MADE TO PLACE AN IV IN THE PATIENT. RESOURCE NURSE FROM [address] [place] [address] ASSISTED WITH INSERTING THE IV. NEW IV IS PLACED ON RIGHT POSTERIOR SIDE OF THE FOREARM. IV FLUSHES WELL AND SITE IS CDI. WILL CONTINUE TO MONITOR NEW IV SITE.
[2019-03-28 16:36] VITALS: BP 123/53
--- NOTE | 2019-03-28 17:56 | NUR ---
A&OX4, LETHARGIC, BUT FOLLOWS COMMANDS AND COOPERATES WELL. PATIENT STATES RIGHT LEG PAIN THROUGHOUT SHIFT AND WAS MANAGED WITH NORCO. VITAL SIGNS ARE STABLE. PATIENT DENIES SOB OR CHEST PAIN. REMAINS ON 2L NC. WILL CONTINUE TO MONITOR PATIENT.
--- NOTE | 2019-03-28 19:20 | NUR ---
RECEIVED AWAKE AND VERBALLY RESPONSIVE. ABLE TO MAKE NEEDS KNOWN. SKIN WARM AND DRY TO TOUCH. RESPIRATION EVEN AND UNLABORED. NO S/S OF ACUTE DSITRESS. DENIES ANY PAIN/DISCOMFORT AT THIS TIME.
[2019-03-28 21:10] VITALS: BP 109/46
--- NOTE | 2019-03-29 00:01 | NUR ---
EYES CLOSED, NO FACIAL GRIMACING NOTED. RESPIRATION EVEN AND UNLABORED. NO S/S OF ACUTE DISTRESS. SEEN AND EXAMINED BY DR LIRA , ORDERED TO DISCONTINUE ZOSYN AND START CLEOCIN 600MG IV PENDING PHARMACY TO VERIFY, WILL CONTINUE TO MONITOR,
--- NOTE | 2019-03-29 05:41 | NUR ---
BLOOD SUGAR 159MG/DL, REFUSED HRI COVERAGE. PT STATE HAS POOR APPETITE. NO ADVERSE REACTION NOTED FROM ATB THERAPY. MAITNAINED ON CONTACT ISOLATION FOR MRSA NARE. KEPT CLEAN AND DRY. ALL NEEDS ATTENDED,
[2019-03-29 05:45] VITALS: BP 108/45
[2019-03-29 06:50] LABS: BASOPHIL % 0.1 % (0-2); PLATELET COUNT 249 x10^3mcL (130-400)
[2019-03-29 06:54] LABS: RED CELL DISTRIBUTION WIDTH 14.6 % (11.5-14.5)
[2019-03-29 07:12] LABS: CALCIUM 8.4 mg/dL (8.5-10.1); CARBON DIOXIDE 23.8 mmol/L (21-32); MAGNESIUM 2.2 mg/dL (1.8-2.4); POTASSIUM SERUM 4.5 mmol/L (3.5-5.1)
[2019-03-29 07:13] LABS: CREATININE SERUM 8.7 mg/dL (0.6-1.0)
--- NOTE | 2019-03-29 07:25 | NUR ---
RECEIVED PT IN NO ACUTE DISTRESS. RESTING IN BED WITH EYES CLOSED BUT AROUSABLE. BREATHING EVEN AND UNLABORED ON 2L O2 VIA NC. NO PAIN NOTED. R POSTERIOR KNEE NOTED WITH SLIGHT ERYTHEMA, LARS. RLE ELEVATED WITH PILLOW. HOB SLIGHTLY ELEVATED. CONTACT ISOLATION. FALL PRECAUTIONS. BED IN LOW POSITION, CALL LIGHT WITHIN REACH. WILL CONTINUE TO MONITOR.
[2019-03-29 09:31] VITALS: BP 116/56
--- NOTE | 2019-03-29 11:09 | NUR ---
P.T. NOTES AFTER MULTIPLE ATTEMPTS PATIENT REFUSED TO WORK W/ P.T., STATES NOT FEELING WELL.
--- NOTE | 2019-03-29 12:17 | NUR ---
PT RESTING IN BED. NO ACUTE DISTRESS. HOB ELEVATED. ERYTHEMA AND SWELLING TO R POSTERIOR KNEE, ELEVATED WITH PILLOW. IV TO RFA, NO REDNESS OR SWELLING. VISITOR AT BEDSIDE. FALL PRECAUTIONS. CALL LIGHT WITHIN REACH. WILL CONTINUE TO MONITOR.
[2019-03-29 17:11] VITALS: BP 140/72
--- NOTE | 2019-03-29 17:46 | NUR ---
PT HAD BM, CLEANED AND REPOSITIONED FOR COMFORT. NEW GOWN AND SHEETS PROVIDED.
--- NOTE | 2019-03-29 18:53 | NUR ---
[facility] CALLED REGARDING PT SCHEDULED FOR HD 03/30 AT 0800. PER [facility] REP, DIALYSIS NURSE WILL COME TOMORROW.
--- NOTE | 2019-03-29 18:57 | NUR ---
PT RESTING IN BED. NO ACUTE DISTRESS. SLEEPING BUT AROUSABLE. ERYTHEMA AND SWELLING TO R POSTERIOR KNEE, GEOGRAPHIC AREA INTELLIGENCE OFFICER. RLE ELEVATED WITH PILLOW. IV TO RFA, NO REDNESS OR SWELLING NOTED. HOB ELEVATED. FALL PRECAUTIONS. BED IN LOW POSITION, CALL LIGHT WITHIN REACH. WILL ENDORSE TO ONCOMING SHIFT.
--- NOTE | 2019-03-29 20:00 | NUR ---
RECEIVED PT IN BED, RESTING. ALERT AND ORIENTED. DENIES HEADACHE/DIZZINESS. RESP. EVEN AND UNLABORED. 02 AT 2L/MIN VIA NC, SAT. 98%, NO ACUTE DISTRESS NOTED. AFEBRILE AD VITAL SIGNS STABLE. AV SHUNT TO KT ARM WITH GOOD BRUIT / THRILL. FOR HEMODIALYSIS IN AM. HL TO RFA, INTACT AND PATENT. ASSISTED WITH HS CARE. NO COMPLAINTS NOTED AT THIS TIME. CALL LIGHT WITHIN REACH. WILL CONTINUE TO MONITOR.
[2019-03-29 20:32] VITALS: BP 124/52
--- NOTE | 2019-03-30 01:55 | NUR ---
EYES CLOSED, APPEARS ASLEEP, EASILY AROUSABLE. RESP. EVEN AND UNLABORED. NO ACUTE DISTRESS NOTED. CALL LIGHT WITHIN REACH. WILL CONTINUE TO MONITOR.
[2019-03-30 05:07] VITALS: BP 151/68
--- NOTE | 2019-03-30 06:00 | NUR ---
SLEPT WELL. NO SIGNIFICANT CHANGES NOTED. RESP. EVEN AND UNLABORED. [address], NO ACUTE DISTRESS NOTED. AFEBRILE AND VIATL SIGNS STABLE.DUE MEDS GIVEN ORDERED, LUANN. WELL. INCONT. OF STOOL AND URINE, CLEANED AND KEPT COMFORT.CONTACT ISOLATION PREC. MAINTAINED. WILL CONTINUE TO MONITOR.
--- NOTE | 2019-03-30 07:12 | NUR ---
PHYSICAL THERAPY DAILY NOTES CO-SIGN All documentation done by the Gasket Notcher for 03/29/19 has been reviewed. I agree with the documentation. Reviewed/Co-Signed by: Kassidy Ricardo PT Documentation Done by:MAXIMUS MACIAS PTA
[2019-03-30 07:13] LABS: BASOPHIL % 0.4 % (0-2); PLATELET COUNT 245 x10^3mcL (130-400); RED CELL DISTRIBUTION WIDTH 14.1 % (11.5-14.5)
--- NOTE | 2019-03-30 07:17 | NUR ---
PT LYING IN BED A/A. BREATHING EQUAL/UNLABORED ON 2L VIA NC. NO ACUTE PAIN/ DISTRESS. NO REDNESS/ SWELLING TO IV SITE. L ARM AV SHUNT COVERED WITH BANDAGE, CDI. BED IN LOW POSITION, CALL LIGHT IN REACH, SAFETY PRECAUTIONS IN PLACE, WILL CONTINUE TO MONITOR
[2019-03-30 07:58] LABS: CALCIUM 8.5 mg/dL (8.5-10.1); CARBON DIOXIDE 25.5 mmol/L (21-32); POTASSIUM SERUM 4.2 mmol/L (3.5-5.1)
[2019-03-30 08:03] LABS: CREATININE SERUM 10.6 mg/dL (0.6-1.0)
[2019-03-30 09:01] VITALS: BP 140/65
--- NOTE | 2019-03-30 11:26 | NUR ---
ElzbietaT. NOTES PATIENT REFUSED TO BE SEEN BY P.T. AT THIS TIME, STATES NOT FEELING WELL AND WOULD LIKE TO GET SOME REST.
--- NOTE | 2019-03-30 12:47 | NUR ---
PT SITTING IN BED WITH EYES CLOSED. AROUSABLE TO VOICE. BREATHING EQUAL/UNLABORED ON 2 L NC. NO REDNESS / SWELLING TO IV SITE. HEMODIALYSIS IN PROGRES. NO ACUTE PAIN/ DISTRESS. BED IN LOW POSITION, CALL LIGHT IN REACH, SAFETY PRECAUTIONS IN PLACE. WILL CONTINUE TO MONITOR
[2019-03-30 17:22] VITALS: BP 126/64
--- NOTE | 2019-03-30 18:42 | NUR ---
PT SITTING UP IN BED WITH EYES CLOSED, AROUSABLE TO VOICE. BREATHING EQUAL/ [id number] ON 5 L/NC. NO ACUTE PAIN/ DISTRESS. MILD SWELLING TO POSTERIOR R. KNEE. NO REDNESS/ SWELLING TO IV SITE. BED IN LOW POSITION, CALL LIGHT IN REACH, SAFETY PRECAUTIONS IN PLACE. WILL ENDORSE TO ONCOMING NURSE
[2019-03-30 19:20] VITALS: BP 118/51
--- NOTE | 2019-03-30 20:00 | NUR ---
RECEIVED PT IN BED, RESTING QUIETLY. A/O X4. RESP. EVEN AND UNLABORED. [address], LUANN. WELL. NO SOB NOTED. NO ACUTE DISTRESS NOTED. AFEBRILE AND VITAL SIGNS STABLE. DENIES PAIN OR ANY DISCOMFORT AT THIS TIME. RT KNEE SWELLING AND WITH ERYTHEMA, ELEVATED ON PILLOW. HL TO RFA, INTACT AND PATENT. AV SHUNT TO LT ARM WITH GOOD BRUIT/THRILL. ASSISTED WITH HS CARE. CALL LIGHT WITHIN REACH. WILL CONTINUE TO MONITOR.
--- NOTE | 2019-03-31 01:31 | NUR ---
NO COMPLAINTS NOTED. EYES CLOSED, APPEARS ASLEEP, EASILY AROUSABLE. [address], NO ACUTE DISTRESS NOTED. CALL LIGHT WITHIN REACH. WILL CONTINUE TO MONITOR.
--- NOTE | 2019-03-31 04:15 | NUR ---
INCONT. OF URINE AND STOOL, CLEANED AND KEPT COMFORTABLE. WILL CONTINUE TO MONITOR.
--- NOTE | 2019-03-31 04:49 | NUR ---
COMPLAINED OF RT KNEE PAIN, /, MEDICATED WITH MORPHINE SULFATE ORDERED. WILL CONTINUE TO MONITOR.
[2019-03-31 05:05] VITALS: BP 105/50
--- NOTE | 2019-03-31 06:31 | NUR ---
PT STATES PAIN RELIEF. RESTING QUIETLY IN BED. RESP. EVEN AND UNLABORED. [address], NO ACUTE DISTRESS NOTED. AFEBRILE AND VITAL SIGNS STABLE. DUE MEDS GIVEN ORDERED, LUANN. WELL. KEPT COMFORTABLE. CONTACT ISOLATION PREC. MAINTAINED. WILL CONTINUE TO MONITOR.
[2019-03-31 06:37] LABS: BASOPHIL % 0.3 % (0-2); PLATELET COUNT 271 x10^3mcL (130-400); RED CELL DISTRIBUTION WIDTH 14.4 % (11.5-14.5)
[2019-03-31 06:55] LABS: CALCIUM 8.7 mg/dL (8.5-10.1); CARBON DIOXIDE 28.8 mmol/L (21-32); POTASSIUM SERUM 4.2 mmol/L (3.5-5.1)
[2019-03-31 06:59] LABS: CREATININE SERUM 6.4 mg/dL (0.6-1.0)
--- NOTE | 2019-03-31 07:26 | NUR ---
PHYSICAL THERAPY DAILY NOTES CO-SIGN All documentation done by the Yard Warehouse Worker for 03/30/19 has been reviewed. I agree with the documentation. Reviewed/Co-Signed by: Kassidy Ricardo PT Documentation Done by:MAXIMUS MACIAS PTA
--- NOTE | 2019-03-31 08:00 | NUR ---
RECIEVED REPORT FROM [facility] NURSE. PATIENT CURRENTLY AWAKE AND ALERT. NO REPORTS OF PAIN AT THIS TIME. IV TO RIGHT FOREARM AND SALINE LOCKED. HIP INCISION IS DRY, COVERED, AND INTACT. ALLERGY BAND IS ON PATIENT. SAFETY PRECAUTIONS IN PLACE FOR PATIENT. USE OF CALL LIGHT REINFORCED WITH PATIENT.
[2019-03-31 09:00] VITALS: BP 118/50
--- NOTE | 2019-03-31 11:08 | NUR ---
P.T. NOTES AFTER MULTIPLE ATTEMPTS PATIENT REFUSED TO BE SEEN BY P.T., STATES STILL NOT FILLING WELL.
--- NOTE | 2019-03-31 16:04 | NUR ---
PATIENT CURRENTLY AWAKE AND ALERT. NO COMPLAINTS OF PAIN. DAUGHTER AT BEDSIDE.
[2019-03-31 17:11] VITALS: BP 143/69
--- NOTE | 2019-03-31 19:30 | NUR ---
REC'D PT FROM DAY NURSE. PT RESTING IN BED. DROWSY. ORIENTED TO SELF ONLY. REORIENTED TO TIME, PLACE AND SITUATION. SEEMS CONFUSED. FOLLOWS COMMANDS. SPEECH CLEAR. PUPILS EQUAL AND SLUGGISH. DENIES RESP DISTRESS OR SOB. RESP EVEN/UNLABORED ON RA, SPO2 63%. 6L NC APPLIED, SPO2 96%. ABD SOFT/ROUND. DENIES ABD PAIN, TENDERNESS, OR N/V. REPORTS VOIDING. LAST HD 03/30, 2L OUT VIA L UPPER ARM SHUNT. BRUIT/THRILL PRESENT. GEN WEAKNESS. USUALLY SELF AMBULATORY. RLE POSTERIOR CALF/UPPER THIGH ERYTHEMA AND INDURATION. OUTLINED WITH MARKER. REPORTS PAIN 10/10 UPON PALPATION AND MOVEMENT. WILL ASK FOR ALT PAIN MED (OTHER THAN MORPHINE) D/T DROWSINESS. IV TO RFA FLUSHED AND PATENT, SITE WNL. CALL LIGHT WITHIN REACH, BED AT LOWEST POSITION, BED ALARM ON. WILL CONTINUE TO MONITOR.
--- NOTE | 2019-03-31 20:19 | NUR ---
CALLED [facility], HD NURSE, AND LEFT MESSAGE TO CALL BACK.
--- NOTE | 2019-03-31 20:23 | NUR ---
SPOKE TO DR. KELLY. MADE AWARE PT HAS BEEN DROWSY AND REQUESTED NORCO FOR PAIN.
--- NOTE | 2019-03-31 20:33 | NUR ---
REC'D CALL BACK FROM [facility]. INFORMED OF SCHEDULED HD TOMORROW.
[2019-03-31 21:21] VITALS: BP 131/57
--- NOTE | 2019-04-01 00:29 | NUR ---
PT RESTING IN BED WITH EYES CLOSED. BREATHING EVEN/UNLABORED ON RA. PT REMOVES NC PERIODICALLY. INSTRUCTED TO KEEP NC ON TO KEEP OXYGENATION LEVELS UP. HUMDIFIER ADDED FOR COMFORT. SPO2 94% ON 5L O2. NO COMPLAINTS OF PAIN AT THIS TIME. RLE ELEVATED. CALL LIGHT WITHIN REACH, BED AT LOWEST POSITION. WILL CONTINUE TO MONITOR.
--- NOTE | 2019-04-01 04:27 | NUR ---
PT RESTING IN BED WITH EYES CLOSED. BREATHING EVEN/UNLABORED ON 5L O2 VIA NC WITH HUMIDIFIER. NO S/SX OF PAIN NOTED. RLE ELEVATED WITH PILLOWS. NO SIGNIFICANT CHANGES DURING SHIFT. CALL LIGHT WITHIN REACH, BED AT LOWEST POSITION. WILL ENDORSE TO DAY NURSE.
--- NOTE | 2019-04-01 04:49 | NUR ---
PT C/O MILD RLE PAIN. TYLENOL GIVEN PER ORDER. PT MORE ALERT THIS MORNING. ORIENTED TO SELF AND TIME. REORIENTED TO PLACE (PT THOUGHT SHE WAS AT [facility]).
[2019-04-01 06:57] LABS: PLATELET COUNT 308 x10^3mcL (130-400); RED CELL DISTRIBUTION WIDTH 14.1 % (11.5-14.5)
--- NOTE | 2019-04-01 07:02 | NUR ---
PHYSICAL THERAPY DAILY NOTES CO-SIGN All documentation done by the Campaign Coordinator for 03/31/19 has been reviewed. I agree with the documentation. Reviewed/Co-Signed by: Kassidy Ricardo PT Documentation Done by:MAXIMUS MACIAS PTA
[2019-04-01 07:17] LABS: CARBON DIOXIDE 29.5 mmol/L (21-32); POTASSIUM SERUM 3.8 mmol/L (3.5-5.1)
--- NOTE | 2019-04-01 08:24 | NUR ---
RECIEVED REPORT FROM [facility] NURSE. PATIENT APPEARS VERY DROWSY AND SLEEPY. PATIENT ON 5 LITER NC. LUNG SOUNDS DIMINISHED. PATIENT A+O X 3. SAFETY PRECAUTIONS IN PLACE. WILL CONTINUE TO MONITOR.
--- NOTE | 2019-04-01 08:41 | NUR ---
RECIEVED PHONE CALL FROM LAB REPORTING CRITICAL VALUE WBC OF 21. NURSE PRACTITIONER NOTIFIED. ROVING WEIGHT GAUGER STATED THAT SHE WILL ORDER A BLOOD CULTURE. CONTINUING TO MONITOR.
[2019-04-01 09:02] VITALS: BP 106/45
--- NOTE | 2019-04-01 09:05 | NUR ---
P.T. NOTES PATIENT CONTINUES TO REFUSE P.T., STATES NOT FEELING WELL AND WOULD LIKE TO GET SOME REST.
--- NOTE | 2019-04-01 10:50 | NUR ---
PHONE CALL MADE TO NURSE PRACTIONVER OVER PATIENT'S CARE. BUILDING ECONOMIST AWARE THAT PATIENT IS REMOVING HER OXYGEN. BUILDING ECONOMIST MADE AWARE OF PATIENT'S DROWSINESS. BUILDING ECONOMIST TO ORDER ABG LEVELS.
--- NOTE | 2019-04-01 11:24 | NUR ---
NEW IV STARTED TO RIGHT HAND.
[2019-04-01 12:13] LABS: BAND NEUTROPHIL 1 % (0-10); MONOCYTE 3 % (0-7); SEGMENTED NEUTROPHILS 87 % (37-75)
[2019-04-01 12:27] VITALS: BP 129/87
--- NOTE | 2019-04-01 13:03 | NUR ---
PATIENT CURRENTLY AWAKE AND SITTING UP IN BED RECIEVING DIALYSIS. DAILYSIS NURSE SITTING IN ROOM WITH PATIENT. VITAL SIGNS STABLE.
[2019-04-01 13:27] LABS: rbc morphology (normal/abnorm) NORMAL (NORMAL)
--- NOTE | 2019-04-01 14:26 | NUR ---
PATIENT CURRENTLY RECIEVING DIALYSIS. PATIENT AWAKE AND ORIENTED. PATIENT ON 5 L/ OXYGEN VIA NASAL CANNULA. IV IS SALINE LOCKED TO THE RIGHT HAND. NO REPORTS OF DISCOMFORT AT THIS TIME.
--- NOTE | 2019-04-01 16:08 | NUR ---
DIALYSIS FINISHED. PER DIALYSIS NURSE PATIENT HAD 2 LITERS REMOVED. CURRENT VITAL SIGNS: B/P 151/67, HEART RATE: 91. PATIENT STILL ON 5 LITER NASAL CANNULA. VANCO STARTED AT 1540. BLOOD SUGAR COVERED WITH 3 UNITS INSULIN.
[2019-04-01 16:32] VITALS: BP 103/47
--- NOTE | 2019-04-01 17:56 | NUR ---
PATIENT CURRENTLY IN BED AWAKE AND ALERT. PATIENT ORIENTED TO PERSON AND PLACE AND TIME. IV VANCOMYCIN CURRENTLY INFUSING. PATIENT TOLERATING WELL. PATIENT CURRENTLY ON 5 LITER NASAL CANNULA. WILL ENDORSE CARE TO NIGHT NURSE.
--- NOTE | 2019-04-01 19:30 | NUR ---
REC'D PT FROM DAY NURSE. PT RESTING IN BED. AAOX3. SPEECH CLEAR, FOLLOWS COMMANDS. DROWSY. PT STILL SLIGHTLY CONFUSED. ASKING IF PEOPLE LIVE AND PAY RENT HERE. REORIENTED THAT SHE IS IN THE HOSPITAL. DENIES RESP DISTRESS OR SOB. BREATHING EVEN/UNLABORED ON 5L O2 VIA NC WITH HUMIDFIER, SPO2 98%. INSTRUCTED PT TO KEEP NC ON, SHE TENDS TO REMOVE IT INTERMITTENTLY AND DESATS. PT VERBALIZED UNDERSTANDING. PITTING EDEMA RLE. ELEVATED WITH PILLOWS. ERYTHEMA AND PAIN UPON PALPATION TO R POSTERIOR KNEE/UPPER LEG. CELLULITIS OUTLINED WITH MARKER. ABD SOFT/ROUND/NONTENDER. REPORTS URINATING OCCASIONALLY. LAST HD TODAY, 2L OUT VIA N[facility] AV SHUNT. BRUIT/THRILL PRESENT. PITTING EDEMA DUKE. NO IV AT THIS TIME D/T INFILTRATION. WILL INSERT. CALL LIGHT WITHIN REACH, BED AT LOWEST POSITION. WILL CONTINUE TO MONITOR.
[2019-04-01 20:23] VITALS: BP 141/58
--- NOTE | 2019-04-02 01:45 | NUR ---
PT RESTING IN BED WITH CLOSED. NO SIGNS OF DISTRESS NOTED. BREATHING EVEN/UNLABORED ON 5L O2 VIA NC WITH HUMIDIFIER. AWAKENS WITH VERBAL STIMULI. REPORTS MILD PAIN TO RLE. TYLENOL GIVEN PER REQUEST. CALL LIGHT WITHIN REACH, BED AT LOWEST POSITION. WILL CONTINUE TO MONITOR.
[2019-04-02 04:43] VITALS: BP 115/44
--- NOTE | 2019-04-02 05:38 | NUR ---
PT AWAKE AND RESTING IN BED WATCHING. FOUND NC ON TOP OF HER HEAD. BREATHING EVEN/UNLABORED ON RA, SPO2 87%. 2L NC APPLIED- SPO2 98%. PT MORE AWAKE THIS MORNING. DENIES PAIN TO RLE. DUKE EDEMA IMPROVING. DUKE AND RLE ELEVATED WITH PILLOWS. PT DID NOT URINATE THIS SHIFT. NO SIGNIFICANT CHANGES. CALL LIGHT WITHIN REACH, BED AT LOWEST POSITION. WILL ENDORSE TO DAY NURSE.
[2019-04-02 06:43] LABS: BASOPHIL % 0.2 % (0-2); PLATELET COUNT 284 x10^3mcL (130-400); RED CELL DISTRIBUTION WIDTH 14.4 % (11.5-14.5)
[2019-04-02 06:49] LABS: CALCIUM 8.7 mg/dL (8.5-10.1); CARBON DIOXIDE 30.3 mmol/L (21-32); POTASSIUM SERUM 3.4 mmol/L (3.5-5.1)
[2019-04-02 06:50] LABS: CREATININE SERUM 5.5 mg/dL (0.6-1.0)
--- NOTE | 2019-04-02 07:32 | NUR ---
PHYSICAL THERAPY DAILY NOTES CO-SIGN All documentation done by the Technical Asst for 04/01/19 has been reviewed. I agree with the documentation. Reviewed/Co-Signed by: Kassidy Ricardo PT Documentation Done by:MAXIMUS MACIAS PTA
--- NOTE | 2019-04-02 07:35 | NUR ---
RECEIVED PT IN NO ACUTE DISTRESS. SLEEPING BUT EASILY AROUSABLE. RESP EVEN AND UNLABORED ON 2LPM VIA NC. NO PAIN NOTED. HOB SLIGHLTY ELEVATED. RLE ELEVATED WITH PILLOW. FALL PRECAUTIONS. CONTACT ISOLATION. BED IN LOW POSITION, CALL LIGHT WITHIN REACH. WILL CONTINUE TO MONITOR.
[2019-04-02 07:43] VITALS: BP 141/59
--- NOTE | 2019-04-02 11:46 | NUR ---
1. Recommend CCHO, Renal diet. Discussed with EDUARDA López.
--- NOTE | 2019-04-02 11:46 | NUR ---
Follow-up Nutrition Assessment: 260/B JENNIFFER DELUCA MR FU Dx: Bilateral leg cellulitis PMHx: ESRD, hypothyroidism, DM Labs: K 3.4L, BG 197H, BUN 25H, CREAT 5.5H, WBC 18.7H, HGB 9.2L Meds: Colace, D 50%, Humulin, lantus, Lipitor, morphine, synthyroid Diet: CCHO PO Intake: (04/01) dinner 60%, breakfast 40%, (03/31) breakfast 30% Weights: (03/26) 75.4 kg, (04/02) 75.5 kg I/Os: (04/01) 580/not documented Skin: RLE cellulitis, erythema to R post knee and upper thigh Iggy: 20 Edema: DUKE pitting edema GI: poor appetite, no N/V Last BM: 04/01 RD Note (04/02): Patient was sleeping. Per GEE Gonzalez, patient has been eating fine and does not ahev any N/V/D/C at this time. Patient has HD yesterday (04/01). Renal and diabetic diet education was provided during last RD visit. Estimated Nutritional Needs Based on ideal body weight (52 kg) Energy: 5036-5680 kcal/day (30-35 kcal/kg for ESRD) Protein: 62-78 g/day (1.2-1.5 g/kg for ESRD) Fluid: 4401-3785 mL/day (1 mL/kcal) or per MD Nutrition Diagnosis: 1. Increased nutrient need related to renal dysfunction as evidenced by pt with ESRD on HD. (ongoing) Intervention: 1. Recommend CCHO, Renal diet. Discussed with EDUARDA López. Monitor/Evaluate: Goal: Have pt meet at least 75% of estimated needs Monitor: PO intake, Labs, GI function F/U in 3-5 days as moderate risk 04/05-
[2019-04-02 11:59] VITALS: BP 107/57
--- NOTE | 2019-04-02 12:37 | NUR ---
PATIENT SITTING UP IN CHAIR, ASSISTED BY PHYSICAL THERAPY. AAOX3. RESP EVEN AND UNLABORED ON 2L O2 VIA NC. MEDICATED FOR PAIN ORDERED. IV TO RFA, NO REDNESS OR SWELLING NOTED. CALL LIGHT WITHIN REACH. FALL PRECAUTIONS. CONTACT ISOLATION. WILL CONTINUE TO MONITOR.
--- NOTE | 2019-04-02 16:51 | NUR ---
PT HAD BM, CLEANED AND ASSISTED BACK TO BED. PT IN NO ACUTE DISTRESS. HOB ELEVATED. FALL PRECAUTIONS. WILL CONTINUE TO MONITOR.
[2019-04-02 17:08] VITALS: BP 111/53
--- NOTE | 2019-04-02 18:42 | NUR ---
PT RESTING IN BED. SLEEPING BUT EASILY AROUSABLE. RESP EVEN AND UNLABORED ON 2L O2 VIA NC. NO PAIN NOTED. FALL PRECAUTIONS. HOB ELEVATED. CONTACT ISOLATION. IV TO R THUMB, NO REDNESS OR SWELLING NOTED. BED IN LOW POSITION, CALL LIGHT WITHIN REACH. WILL ENDORSE TO ONCOMING SHIFT.
--- NOTE | 2019-04-02 19:51 | NUR ---
PT CURRENTLY RESTING IN BED, NO ACUTE DISTRESS. A/O X4. NO TELE, MED/SURG. DENIES CHEST PAIN. PULSES PALPABLE IN ALL EXTREMITIES, BLE TRACE EDEMA. LUNG SOUNDS DIMINISHED IN BILATERAL BASES, DENIES SOB, O2 VIA NC AT 2L. BOWEL SOUNDS ACTIVE, LAST BM 04/02/19. INCONTINENT. NICA AV SHUNT. GENERALIZED WEAKNESS. RIGHT POSTERIOR KNEE ERRYTHEMA, LARS. IV PATENT AND INTACT. BED IN LOWEST POSITION, SIDE RAILS UP X2, CALL LIGHT WITHIN REACH. WILL CONTINUE TO MONITOR.
[2019-04-02 21:02] VITALS: BP 109/67
--- NOTE | 2019-04-03 00:04 | NUR ---
PT CURRENTLY RESTING IN BED, NO ACUTE DISTRESS. WILL CONTINUE TO MONITOR.
[2019-04-03 06:10] VITALS: BP 115/48
--- NOTE | 2019-04-03 06:10 | NUR ---
PT SLEPT PERIODICALLY THROUGHOUT NIGHT, NO ACUTE DISTRESS. ALL NEEDS MET AND ATTENDED TO. NO SIGNIFICANT CHANGES. IV PATENT AND INTACT. BED IN LOWEST POSITION, SIDE RAILS UP X2, CALL LIGHT WITHIN REACH. WILL ENDORSE CARE TO ONCOMING NURSE.
--- NOTE | 2019-04-03 07:30 | NUR ---
RECEIVED PT IN NO ACUTE DISTRESS. SLEEPING BUT EASILY AROUSABLE. RESP EVEN AND UNLABORED ON 2L O2 VIA NC. NO PAIN NOTED. HOB ELEVATED. IV TO R THUMB, NO REDNESS OR SWELLING NOTED. FALL PRECAUTIONS. CONTACT ISOLATION. BED IN LOW POSITION, CALL LIGHT WITHIN REACH. WILL CONTINUE TO MONITOR.
[2019-04-03 07:51] VITALS: BP 110/51
[2019-04-03 08:59] LABS: BASOPHIL % 0.2 % (0-2); PLATELET COUNT 313 x10^3mcL (130-400)
[2019-04-03 09:20] LABS: RED CELL DISTRIBUTION WIDTH 14.6 % (11.5-14.5)
--- NOTE | 2019-04-03 12:16 | NUR ---
PT IN NO ACUTE DISTRESS. SITTING UP IN CHAIR. RLE ELEVATED WITH PILLOW AND CHAIR. RESP EVEN AND UNLABORED ON 4L O2 VIA NC. FALL PRECAUTIONS. CALL LIGHT WITHIN REACH. CONTACT ISOLATION. WILL CONTINUE TO MONITOR.
[2019-04-03 13:26] LABS: CALCIUM 8.5 mg/dL (8.5-10.1); CARBON DIOXIDE 26.2 mmol/L (21-32); POTASSIUM SERUM 3.9 mmol/L (3.5-5.1)
[2019-04-03 13:33] LABS: CREATININE SERUM 7.4 mg/dL (0.6-1.0)
[2019-04-03 17:35] VITALS: BP 122/53
--- NOTE | 2019-04-03 18:24 | NUR ---
PT IN NO ACUTE DISTRESS. EATING DINNER AT THIS TIME. RESP EVEN AND UNLABORED ON 3L O2 VIA NC. PT STATED RLE PAIN TOLERABLE AT THIS TIME, ELEVATED WITH PILLOW. CONTACT ISOLATION. FALL PRECAUTIONS. IV TO R HAND, NO REDNESS OR SWELLING NOTED. STRIPE MATCHER AT BEDSIDE. BED IN LOW POSITION, CALL LIGHT WITHIN REACH. WILL ENDORSE TO ONCOMING SHIFT.
--- NOTE | 2019-04-03 18:30 | NUR ---
HEMODIALYSIS STARTED AT THIS TIME. RIGHT OF WAY WORKER AT BEDSIDE. PT IN NO ACUTE DISTRESS. RESTING IN BED. WILL ENDORSE TO ONCOMING SHIFT.
--- NOTE | 2019-04-03 19:58 | NUR ---
PT CURRENTLY RESTING IN BED, NO ACUTE DISTRESS. A/O X3, CONFUSED AT TIMES. DROWSY BUT ARROUSABLE. NO TELE, MED/SURG, DENIES CHEST PAIN. PULSES PALPABLE IN ALL EXTREMITIES, RLE TRACE EDEMA NOTED. LUNG SOUNDS DIMINISHED IN BILATERAL BASES, DENIES SOB, O2 VIA NC AT 3L. BOWEL SOUNDS ACTIVE, LAST BM 04/02/19. NICA AV SHUNT NOTED, CURRENTLY RECEIVING HD. GENERALIZED WEAKNESS. RLE ERRYTHEMA, LARS. IV PATENT AND INTACT. BED IN LOWEST POSITION, SIDE RAILS UP X2, CALL LIGHT WITHIN REACH. WILL CONTINUE TO MONITOR.
[2019-04-03 22:28] VITALS: BP 115/61
--- NOTE | 2019-04-03 22:28 | NUR ---
HD COMPLETED AT 2220, 2L OUT. PT CURRENTLY RESTING IN BED, NO ACUTE DISTRESS. WILL CONTINUE TO MONITOR.
--- NOTE | 2019-04-04 05:11 | NUR ---
PT FOUND WITH RIGHT THUMB IV PULLED OUT, CATHETER INTACT. NEW IV STARTED IN RFA, PT TOLERATED WELL. WILL CONTINUE TO MONITOR.
[2019-04-04 05:21] VITALS: BP 114/57
[2019-04-04 06:35] LABS: CALCIUM 8.8 mg/dL (8.5-10.1); CARBON DIOXIDE 29.1 mmol/L (21-32); POTASSIUM SERUM 3.6 mmol/L (3.5-5.1)
[2019-04-04 06:39] LABS: PLATELET COUNT 292 x10^3mcL (130-400)
[2019-04-04 06:40] LABS: CREATININE SERUM 4.8 mg/dL (0.6-1.0)
--- NOTE | 2019-04-04 07:30 | NUR ---
PT ENDORSE TO ME THIS MORNING, LAYING IN BED REST, SLEEPING BUT EASILY AROUSABLE. BREATHING EVEN AND UNLABORED ON 3L NC TOLERATING WELL, NO ACUTE RESP DISTRESS OR SOB NOTED. MEDSURG/ NO SIGN OF CP OR PRESSURE. HD PATIENT ON T-TH-SAT/ LAST HD WAS SAT.PULSES WEAK AND EDEMA NOTED RLE AND RUE. NICA SHUNT NOTED. RLE ERYTHEMA NOTED/ LARS. IV TO THE RWRIST INTACT AND PATENT/ HEPLOCKED. CALL LIGHT IN REACH. BED IN LOW POSITION. X2 SIDE RAIL UP. WILL CONTINUE TO MONITOR.
[2019-04-04 07:36] LABS: BASOPHIL % 0 % (0-2); RED CELL DISTRIBUTION WIDTH 14.9 % (11.5-14.5)
--- NOTE | 2019-04-04 08:44 | NUR ---
PT C/O LEFT LEG PAIN 12/26, MEDICATED PER EMAR, TOLERATED 40% OF BF, DENIES ANY N/V AT THIS TIME. WILL CONTINUE TO MONITIOR.
[2019-04-04 09:34] VITALS: BP 100/46
--- NOTE | 2019-04-04 16:50 | NUR ---
PT C/O OF R LEG PAIN 10/26, MEDICATED PER EMAR. PT STATED SHE ATE 30% OF LUNCH, PROVIDED X2 SUGAR FREE JELLO'S WILL CONTINUE TO MONITOR.
[2019-04-04 17:58] VITALS: BP 104/50
--- NOTE | 2019-04-04 18:29 | NUR ---
NO ACUTE CHANGES AT THIS TIME, NO ACUTE RESP DISTRESS OR SOB NOTED. DENIES ANY DISCOMFORT TO THE RLE, MEDICATED PER EMAR. IV TO THE RIGHT WRIST INTACT AND PATENT/ HEPLOCKED, NO REDNESS OR SWELLING NOTED. CALL LIGHT IN REACH.BED IN LOW POSITION, X2 SIDE RAIL UP, WILL ENDORSE TO INCOMING RN.
--- NOTE | 2019-04-04 18:53 | NUR ---
PT C/O N/V, MEDICATED PER EMAR. WILL ENDORSE TO INCOMING RN
[2019-04-04 19:19] VITALS: BP 103/51
--- NOTE | 2019-04-04 20:04 | NUR ---
RECEIVED PT IN BED, RESTING QUIETLY. ALERT AND ORIENTED. ABLE TO VERBALIZE NEEDS. RESP. EVEN AND UNLABORED. [address] SAT. 93% AT THIS TIME. AFEBRILE AND VITAL SIGNS STABLE. DENIES PAIN OR ANY DISCOMFORT AT THIS TIME. HL TO RW, INTACT AND PATENT. EDEMA AND ERYTHEMA TO RLE, ELEVATED ON PILLOW. ABLE TO MOVE ALL EXTS. AV SHUNT TO LT UPPER ARM WITH GOOD BRUIT/THRILL. HEMODIALYSIS PT. ASSISTED WITH HS CARE. CALL LIGHT WITHIN REACH. WILL CONTINUE TO MONITOR.
--- NOTE | 2019-04-05 01:21 | NUR ---
EYES CLOSED, APPEARS ASLEEP, EASILY AROUSABLE. [address], RESP. EVEN AND UNLABORED. NO ACUTE DISTRESS NOTED. WILL CONTINUE TO MONITOR.
[2019-04-05 05:19] VITALS: BP 99/51
--- NOTE | 2019-04-05 06:16 | NUR ---
AFEBRILE AND VITAL SIGNS STABLE.RESP. EVEN AND UNLABORED. [address], DENIES SOB. NO ACUTE DISTRESS NOTED. DUE MEDS GIVEN ORDERED. LUANN. WELL. NO COMPLAINTS OF PAIN OR ANY DISCOMFORT AT THIS TIME. NO BM OR URINARY OUTPUT NOTED. HEMODIALYSIS PT.CALL LIGHT WITHIN REACH. WILL CONTINUE TO MONITOR.
[2019-04-05 06:56] LABS: BASOPHIL % 0.1 % (0-2); PLATELET COUNT 292 x10^3mcL (130-400)
[2019-04-05 07:01] LABS: CALCIUM 8.3 mg/dL (8.5-10.1); CARBON DIOXIDE 28.3 mmol/L (21-32); POTASSIUM SERUM 3.9 mmol/L (3.5-5.1)
[2019-04-05 07:08] LABS: RED CELL DISTRIBUTION WIDTH 14.7 % (11.5-14.5)
[2019-04-05 07:43] LABS: CREATININE SERUM 6.8 mg/dL (0.6-1.0)
--- NOTE | 2019-04-05 07:56 | NUR ---
RECIEVED REPORT FROM [facility] NURSE. PATIENT IN BED. PATIENT IS AWAKE AND ALERT AND SHOWS APPROPRIATE ORIENTATION. IV TO RIGHT HAND AND IS SALINE LOCKED. PATIENT IS CURRENTLY ON 3 LITERS NASAL CANNULA. DENIES PAIN AT THIS TIME. LUNG SOUNDS DIMINISHED ALL LUNG HOLT. NO REPORTS OF DYSPNEA FROM PATIENT. SAFETY PRECAUTIONS IN PLACE. USE OF CALL LIGHT REINFORCED WITH PATIENT. SCDS AT BEDSIDE, BUT NOT IN PLACE. WILL PLACE ON PATIENT. BED IN THE LOW POSITION. WILL CONTINUE TO MONITOR.
[2019-04-05 08:51] VITALS: BP 102/43
--- NOTE | 2019-04-05 11:14 | NUR ---
K-PAD PUT IN PLACE ON RIGHT KNEE PER PHYSICIAN ORDER. PATIENT STILL ON 3 LITER NC. NC INTACT AND INPLACE. PATIENT OBSERVED SLEEPING UPRIGHT NO CURRENT REPORT OF PAIN. EVEN AND UNLABORED BREATHING. SYMMETRICAL CHEST WALL MOVEMENT. ANTIBIOTIC ADMINISTERED AND TOLERATED WELL. WILL CONTINUE TO MONITOR.
--- NOTE | 2019-04-05 13:16 | NUR ---
PATIENT CURRENTLY OBSERVED IN BED AND SLEEPING NO CURRENT REPORTS OF PAIN AT THIS TIME. K-PAD STILL IN PLACE TO RIGHT KNEE. [address]
--- NOTE | 2019-04-05 15:05 | NUR ---
PATIENT CURRENTLY OBSERVED RESTING IN BED. PATIENT DOES NOT REPORT PAIN AT THIS TIME. RESPIRATION EVEN AND UNLABORED. NASAL CANNULA AT [address]
--- NOTE | 2019-04-05 15:07 | NUR ---
ASSESSMENT PERFORMED OF LEFT UPPER ARM AV SHUNT. BRUIT AND THRILL PRESENT.
--- NOTE | 2019-04-05 16:18 | NUR ---
SPOKE WITH PHYSICAL THERAPIST WHO REPORTED THAT THE PATIENT WAS ABLE TO TAKE A FEW STEPS OUT OF BED AND AMBULATE TO A CHAIR. PATIENT IS CURRENTLY SITTING UP IN CHAIR.
[2019-04-05 16:45] VITALS: BP 111/54
[2019-04-05 16:53] VITALS: BP 111/54
--- NOTE | 2019-04-05 17:55 | NUR ---
PATIENT OBSERVED SLEEPING IN BED. VANCOMYCIN CURRENTLY INFUSING IN RIGHT HAND IV. NASAL CANNULA IN PLACE AT 3 LITERS. RESPIRATIONS REGULAR RATE, EVEN AND UNLABORED WITH SYMMETRICAL CHEST WALL MOVEMENT. WILL ENDORSE CARE TO NIGHT NURSE.
--- NOTE | 2019-04-05 20:53 | NUR ---
PT CURRENTLY RESTING IN BED, NO ACUTE DISTRESS. A/O X4. NO TELE, MED/SURG. DENIES CHEST PAIN. PULSES PALPABLE IN ALL EXTREMITIES, NO EDEMA NOTED. LUNG SOUNDS DIMINISHED BILATERAL BASES, DENIES SOB, RECEIVING O2 VIA NC AT 3L. BOWEL SOUNDS ACTIVE, LAST BM 04/03/19. INCONTINENT AT TIMES. NICA AV SHUNT NOTED, LAST HD 04/03/19 2L OUT. GENERALIZED WEAKNESS. RIGHT POSTERIOR KNEE ERRYTHEMA, LARS. IV PATENT AND INTACT. BED IN LOWEST POSITION, SIDE RAILS UP X2, CALL LIGHT WITHIN REACH. WILL CONTINUE TO MONITOR.
[2019-04-05 20:57] VITALS: BP 142/64
--- NOTE | 2019-04-06 00:45 | NUR ---
PT CURRENTLY RESTING IN BED, NO ACUTE DISTRESS. WILL CONTINUE TO MONITOR.
[2019-04-06 05:49] VITALS: BP 154/68
[2019-04-06 06:11] LABS: BASOPHIL % 0.1 % (0-2); PLATELET COUNT 310 x10^3mcL (130-400); RED CELL DISTRIBUTION WIDTH 14.3 % (11.5-14.5)
[2019-04-06 06:51] LABS: CALCIUM 8.2 mg/dL (8.5-10.1); CARBON DIOXIDE 27.5 mmol/L (21-32); POTASSIUM SERUM 4.1 mmol/L (3.5-5.1)
[2019-04-06 07:19] LABS: CREATININE SERUM 8.9 mg/dL (0.6-1.0)
--- NOTE | 2019-04-06 07:50 | NUR ---
REPORT RECEIVED FROM GEE WRIHGT. PATIENT FOUND RESTING IN BED. NO INDICATION OF DISTRESS NOTED. RESPIRATION EVEN AND UNLABORED. NO C/O PAIN. WILL CONTINUE TO MONITOR. CALL LIGHT WITHIN REACH.
[2019-04-06 08:09] VITALS: BP 172/73
--- NOTE | 2019-04-06 10:55 | NUR ---
SPOKE WITH RADIOLOGY REGARDING MRI SCHEDULED FOR PATIENT. PATIENT TO START DIALYSIS SOON. RADIOLOGY OPEN TO COORDINATING MRI AFTER DIALYSIS FOR PATIENT. PATIENT AWARE. WILL CONTINUE TO MONITOR.
--- NOTE | 2019-04-06 11:52 | NUR ---
COORDINATED DIALYSIS WITH GEE QUINONES AND WITH ROQUE HARTMANN. PATIENT TO START DIALYSIS NOW AND END AT 3:30 PM TO 4 PM. MRI TO BE PERFORMED AFTER DIALYSIS. DIALYSIS QUESTIONNAIRE COMPLETED AND PLACED IN CHART. PATIENT AWARE. WILL CONTINUE TO MONITOR.
--- NOTE | 2019-04-06 13:30 | NUR ---
PHYSICAL THERAPY DAILY NOTES CO-SIGN All documentation done by the Log Grader for 04/06/19 has been reviewed. I agree with the documentation. Reviewed/Co-Signed by: Kassidy Ricardo PT Documentation Done by:MAXIMUS MACIAS PTA
--- NOTE | 2019-04-06 14:39 | NUR ---
1. Recommend CCHO, Renal diet. Discussed with EDUARDA Higginbotham.
--- NOTE | 2019-04-06 14:39 | NUR ---
Follow-up Nutrition Assessment: 260/B JENNIFFER DELUCA MR FU Dx: Bilateral leg cellulitis PMHx: ESRD, hypothyroidism, DM Labs: (04/06) NA 133L, BG 160H, BUN 48H, CREAT 8.9H, WBC 18.5H, HGB 8.7L Meds: Cleocin, Colace, D 50%, Humulin, lantus, Lipitor, morphine, synthyroid, vancomycin Diet: CCHO PO Intake: (04/05) lunch 80%, breakfast 50%, (04/04) lunch 100%, breakfast 40% Weights: (03/26) 75.4 kg, (04/02) 75.5 kg, (04/06) 75.8 kg I/Os: (04/05) 1790/not documented Skin: RLE cellulitis, erythema to R post knee and upper thigh Iggy: 19 Edema: none GI: poor appetite, no N/V Last BM: 04/03 RD Note (04/06): Patient said that she has good appetite and ate her breakfast this morning. Patient denies any N/V/D/C at this time. NCM handout on CKD+ DM was provided to the patient. Estimated Nutritional Needs Based on ideal body weight (52 kg) Energy: 0435-6097 kcal/day (30-35 kcal/kg for ESRD) Protein: 62-78 g/day (1.2-1.5 g/kg for ESRD) Fluid: 7042-4181 mL/day (1 mL/kcal) or per MD Nutrition Diagnosis: 1. Increased nutrient need related to renal dysfunction as evidenced by pt with ESRD on HD. (ongoing) Intervention: 1. Recommend CCHO, Renal diet. Discussed with EDUARDA Higginbotham. Monitor/Evaluate: Goal: Have pt meet at least 75% of estimated needs Monitor: PO intake, Labs, GI function F/U in 7 days as low risk 04/13
[2019-04-06 16:32] VITALS: BP 145/60
--- NOTE | 2019-04-06 18:57 | NUR ---
PATIENT MONITORED IN BED. RESPIRATION EVEN AND UNLABORED. NO SIGNS OF DISTRESS. PATIENT RESTING AFTER MRI PROCEDURE. ATTENDED TO PATIENT NEEDS APPROPRIATE. WILL ENDORSE TO PEARL GLUE OPERATOR RN.
--- NOTE | 2019-04-06 19:45 | NUR ---
PT A/A/O X4. DENIES DIZZINESS AND HEADACHE. BREATH SOUNDS CLEAR. BREATHING EVEN AND UNLABORED ON ROOM AIR. DENIES CHEST PAIN AND PRESSURE. BOWEL SOUNDS ACTIVE. NO C/O N/V AND ABD PAIN. RIGHT LOWER EXTREMITY WITH ERYTHRMA NOTED. AV SHUNT NOTED ON THE LEFT UPPER ARM WITH POSITIVE BRUIT AND THRILL. IV INTACT ON THE RIGHT WRIST. MADE PT COMFORTABLE. PLACED CALL LIGHT WITH IN REACH. WILL CONTINUE TO MONITOR.
--- NOTE | 2019-04-06 20:11 | NUR ---
CALLED TO AND RELAYED THE RESULTS OF THE MRI RT KNEE AND STATED HE'LL THE PATIENT TOMORROW.
[2019-04-06 20:21] VITALS: BP 105/52
--- NOTE | 2019-04-07 00:58 | NUR ---
PT RESTING WITH EYES CLOSED. NO DISTRESS AND DISCOMFORT NOTED. WILL CONTINUE TO MONITOR.
--- NOTE | 2019-04-07 06:01 | NUR ---
PT QUIET AND RESTING. DENIES PAIN THUS FAR. IV INTACT AND INFUSING ORDERED. MADE PT COMFORTABLE. WILL ENDORSE TO THE AM NURSE ACCORDINGLY.
[2019-04-07 06:05] VITALS: BP 104/56
--- NOTE | 2019-04-07 06:31 | NUR ---
PT C/O PAIN ON THE RIGHT KNEE. GAVE PT NORCO PO. PT TOLERATED IT WELL. WILL ENDORSE TO THE AM NURSE ACCORDINGLY.
[2019-04-07 06:37] LABS: PLATELET COUNT 268 x10^3mcL (130-400); RED CELL DISTRIBUTION WIDTH 14.5 % (11.5-14.5)
[2019-04-07 06:42] LABS: CALCIUM 8.1 mg/dL (8.5-10.1); CARBON DIOXIDE 29.7 mmol/L (21-32); MAGNESIUM 1.6 mg/dL (1.8-2.4); POTASSIUM SERUM 4.1 mmol/L (3.5-5.1)
[2019-04-07 07:06] LABS: CREATININE SERUM 5.7 mg/dL (0.6-1.0)
--- NOTE | 2019-04-07 07:51 | NUR ---
RECEIVED IN NO ACUTE DISTRESS. AWAKE, ALERT AND ORIENTED. NO C/O PAIN OR DISCOMFORT. CALL LIGHT WITHIN REACH. WILL CONTINUE WITH PLAN OF CARE.
[2019-04-07 08:33] LABS: BAND NEUTROPHIL 1 % (0-10); BASOPHIL 0 % (0-2); MONOCYTE 5 % (0-7); SEGMENTED NEUTROPHILS 89 % (37-75)
[2019-04-07 08:34] LABS: PLATELET MORPHOLOGY PLATELETS INCREASED; rbc morphology (normal/abnorm) ABNORMAL (NORMAL)
[2019-04-07 08:38] VITALS: BP 115/50
--- NOTE | 2019-04-07 15:07 | NUR ---
RESTING IN NO DISTRESS, NO C/O PAIN AT THIS TIME.
--- NOTE | 2019-04-07 16:43 | NUR ---
C/O PAIN TO RT KNEE 02/25. MEDICATED WITH NORCO.
[2019-04-07 16:51] VITALS: BP 123/61
--- NOTE | 2019-04-07 18:44 | NUR ---
REMAINS IN NO DISTRESS. RESTING AT THIS TIME. NO CHANGES IN VS. NO C/O PAIN OR DISCOMFORT. IVF INFUSING TO KVO AND SITE CLEAR. CALL LIGHT WITHIN REACH. WILL BE ENDORSED TO INCOMING SHIFT.
--- NOTE | 2019-04-07 19:20 | NUR ---
CARE ASSUMED FROM OUTGOING RN. PT RESTING COMFORTABLY IN BED. NO ACUTE DISTRESS NOTED. EVEN AND UNLABORED RESPIRATIONS ON RA. MEDSURG PT. IV PATENT AND INTACT, TKO. LUE AV SHUNT INTACT. NO C/O PAIN AT THIS TIME. RIGHT KNEE ELEVATED, K PAD AT BEDSIDE FOR PRN USE. INFORMED PT ABOUT POSS. PROCEDURE REYNA, WILL BE NPO AFTER MIDNIGHT. PT VERBALIZED UNDERSTANDING. BED IN LOWEST POSITION. SIDE RAILS UPX2. CALL LIGHT WITHIN REACH. WILL CONTINUE TO MONITOR.
[2019-04-07 19:48] VITALS: BP 112/56
--- NOTE | 2019-04-07 23:41 | NUR ---
IV ACCIDENTALLY REMOVED BY PT. CATHETER INTACT, NO BLEEDING NOTED. IV INSERTED BY RESOURCE RN TO RFA, PATENT AND INTACT RUNNING FLUIDS TKO. PT TOLERATED WELL. WILL CONTINUE TO MONITOR.
--- NOTE | 2019-04-08 01:54 | NUR ---
PT RESTING COMFORTABLY IN BED WITH EYES CLOSED. NO ACUTE DISTRESS NOTED. EVEN AND UNLABORED RESPIRATIONS ON 2LNC. IV PATENT AND INTACT, TKO. RLE ELEVATED WITH PILLOW. NPO IN PLACE. BED IN LOWEST POSITION. SIDE RAILS UPX2. CALL LIGHT WITHIN REACH. WILL CONTINUE TO MONITOR.
--- NOTE | 2019-04-08 02:59 | NUR ---
C/O 11/25 RLE PAIN. MEDICATED PER EMAR. WILL REASSESS FOR PAIN AND CONTINUE TO MONITOR.
[2019-04-08 04:31] VITALS: BP 123/54
--- NOTE | 2019-04-08 06:49 | NUR ---
PT SLEPT IN INTERVALS THROUGHOUT THE SHIFT. ALL NEEDS TENDED TO AND MET. C/O RLE PAIN MEDICATED PER EMAR. PT KEPT NPO AFTER MIDNIGHT. BLOOD SUGARS CHECKED, 152 AND 219, NOT COVERED WITH INSULIN DUE TO NPO STATUS AND PROCEDURE THIS AM. EVEN AND UNLABORED RESPIRATIONS ON 2.5LNC, O2 SAT AT 95%. IV PATENT AND INTACT, TKO. BED IN LOWEST POSITION. SIDE RAILS UPX2. CALL LIGHT WITHIN REACH. WILL ENDORSE TO ONCOMING SHIFT.
[2019-04-08 07:06] LABS: PLATELET COUNT 267 x10^3mcL (130-400)
--- NOTE | 2019-04-08 07:20 | NUR ---
RECEIVED PT IN NO ACUTE DISTRESS. RESTING IN BED. GETTING EKG DONE AT THIS TIME. RESP EVEN AND UNLABORED ON 2.5L NC. IV TO RFA, NO REDNESS OR SWELLING NOTED. HOB ELEVATED. FALL PRECAUTIONS. NPO FOR PROCEDURE. BED IN LOW POSITION, CALL LIGHT WITHIN REACH. WILL CONTINUE TO MONITOR.
[2019-04-08 07:42] LABS: BASOPHIL % 0 % (0-2); RED CELL DISTRIBUTION WIDTH 14.8 % (11.5-14.5)
[2019-04-08 07:43] VITALS: BP 115/58
--- NOTE | 2019-04-08 08:32 | NUR ---
REPORT GIVEN TO RITA MEETING/EVENT PLANNER.
[2019-04-08 08:40] LABS: CALCIUM 8.6 mg/dL (8.5-10.1); POTASSIUM SERUM 4.8 mmol/L (3.5-5.1)
[2019-04-08 08:51] LABS: CREATININE SERUM 7.3 mg/dL (0.6-1.0)
--- NOTE | 2019-04-08 09:00 | NUR ---
PT WENT DOWN TO OR IN NO ACUTE DISTRESS.
[2019-04-08 11:00] VITALS: BP 97/45
--- NOTE | 2019-04-08 11:00 | NUR ---
PT BACK FROM OR. AAOX4. RESP EVEN AND UNLABORED ON 3L O2 VIA NC. C/O 01/26 RLE SURGICAL SITE PAIN, WILL MEDICATE ORDERED. MADINA DRAIN IN PLACE. RLE ELEVATED WITH PILLOW REQUESTED BY PT. IV TO RFA, NO REDNESS OR SWELLING. HOB SLIGHTLY ELEVATED. FALL PRECAUTIONS. BED IN LOW POSITION, CALL LIGHT WITHIN REACH. WILL CONTINUE TO MONITOR.
[2019-04-08 11:53] VITALS: BP 104/55
--- NOTE | 2019-04-08 12:11 | NUR ---
PT RESTING IN BED. NO ACUTE DISTRESS. RESP EVEN AND UNLABORED ON 3L NC. HEMODIALYSIS STARTED AT THIS TIME. SOLDERER ASSEMBLER AT BEDSIDE. IV TO RFA, NO REDNESS OR SWELLING. HOB ELEVATED. RLE ELEVATED WITH PILLOW, DRESSING TO R POSTERIOR THIGH C/D/I, MADINA DRAIN IN PLACE. CALL LIGHT WITHIN REACH. WILL CONTINUE TO MONITOR.
--- NOTE | 2019-04-08 13:05 | NUR ---
PHYSICAL THERAPY NOTE PHYSICAL THERAPY SESSION ON HOLD DUE TO MEDICAL PROCEUDRE
--- NOTE | 2019-04-08 15:16 | NUR ---
HEMODIALYSIS FINISHED = 1.4 L OUT PER COVER MAKER. PT IN NO ACUTE DISTRESS. AAOX4. RESTING IN BED. REPORTS MILD PAIN TO RLE SURGICAL SITE. RLE ELEVATED WITH PILLOW. IV TO RFA, NO REDNESS OR SWELLING. PT GIVEN HOT TEA AND JELLO REQUESTED. VISITOR AT BEDSIDE. CALL LIGHT WITHIN REACH. WILL CONTINUE TO MONITOR.
[2019-04-08 15:40] VITALS: BP 120/56
--- NOTE | 2019-04-08 18:48 | NUR ---
PT RESTING IN BED. NO ACUTE DISTRESS. SLEEPING BUT EASILY AROUSABLE. BREATHING EVEN AND UNLABORED ON 3L O2 VIA NC. NO PAIN NOTED. R POSTERIOR THIGH SURGICAL DRESSING C/D/I, RLE ELEVATED WITH PILLOW. MADINA DRAIN WITH 30 ML SEROSANGUINEOUS OUTPUT. IV TO RFA, NO REDNESS OR SWELLING. FALL PRECAUTIONS. BED IN LOW POSITION, CALL LIGHT WITHIN REACH. WILL ENDORSE TO ONCOMING SHIFT.
--- NOTE | 2019-04-08 19:10 | NUR ---
CARE ASSUMED FROM OUTGOING RN. PT RESTING COMFORTABLY IN BED WITH EYES CLOSED. NO ACUTE DISTRESS NOTED. EVEN AND UNLABORED RESPIRATIONS ON 3LNC. MEDSURG PT. IV INTACT. S/P I&D TO RIGHT KNEE, DRESSING CDI. MADINA DRAIN PATENT. BED IN LOWEST POSITION. SIDE RAILS UPX2. CALL LIGHT WITHIN REACH. WILL CONTINUE TO MONITOR.
[2019-04-08 19:29] VITALS: BP 126/52
--- NOTE | 2019-04-09 01:04 | NUR ---
PT RESTING COMFORTABLY IN BED WITH EYES CLOSED. NO ACUTE DISTRESS NOTED. EVEN AND UNLABORED RESPIRATIONS ON 3LNC. DRESSING CDI TO RLE. BED IN LOWEST POSITION. SIDE RAILS UXP2. CALL LIGHT WITHIN REACH. WILL CONTINUE TO MONITOR.
[2019-04-09 04:57] VITALS: BP 139/56
--- NOTE | 2019-04-09 06:28 | NUR ---
PT SLEPT IN INTERVALS THROUGHOUT THE SHIFT. ALL NEEDS TENDED TO AND MET. ALL SCHEDULED MEDICATIONS GIVEN. C/O PAIN MEDICATED PER EMAR. S/P I&D TO RIGHT POSTERIOR THIGH, DRESSING CDI. MADINA DRAIN PATENT WITH 15ML OUTPUT OF SEROSANGINEOUS FLUIDS EMPTIED, BULB SUCTION REAPPLIED. EVEN AND UNLABORED RESPIRATIONS ON 3LNC. IV PATENT AND INTACT. BED IN LOWEST POSITION. SIDE RAILS UPX2. CALL LIGHT WITHIN REACH. WILL ENDORSE TO ONCOMING SHIFT.
[2019-04-09 06:52] LABS: CARBON DIOXIDE 30.3 mmol/L (21-32); POTASSIUM SERUM 4.5 mmol/L (3.5-5.1)
[2019-04-09 06:56] LABS: CREATININE SERUM 5.2 mg/dL (0.6-1.0)
[2019-04-09 06:59] LABS: BASOPHIL % 0.2 % (0-2); PLATELET COUNT 268 x10^3mcL (130-400); RED CELL DISTRIBUTION WIDTH 14.3 % (11.5-14.5)
[2019-04-09 07:30] VITALS: BP 108/49
--- NOTE | 2019-04-09 07:35 | NUR ---
AAO X4.DENIES ANY PAIN/DISCOMFORT.LUNGS CLEAR.NONE TELE.IV TO TKO FOR ANTIBIOTICS.R LEG WITH DRESSING CDI.ALSO WITH MADINA DRAIN W/ PURULENT DRESSING.1+EDEMA AND REDNESS NOTED.CALL LIGHT WITHIN REACH.INSTRUCTED TO CALL FOR ANY PAIN/DISCOMFORT.WILL CONTINUE TO MONITOR PT.
[2019-04-09 11:45] VITALS: BP 111/48
--- NOTE | 2019-04-09 12:21 | NUR ---
GAVE NORCO 1 TAB ORDERED PRN FOR C/O R LEG PAIN AFTER GETTING ON THE CHAIR WITH PHYSICAL THERAPY.WILL CONTINUE TO MONITOR PT.
--- NOTE | 2019-04-09 13:21 | NUR ---
WENT TO CHECK ON PT'S PAIN LEVEL.PT IS COMFORTABLY SLEEPING IN BED.
[2019-04-09 16:19] VITALS: BP 105/47
--- NOTE | 2019-04-09 18:51 | NUR ---
NO SIGNIFICANT CHANGE NOTED.WILL ENDORSE TO NEXT SHIFT.
--- NOTE | 2019-04-09 19:59 | NUR ---
DR SANTOS CAME FOR VISIT, TALKED TO THE BROTHER AND THE PT, GIVING UPDATES.
--- NOTE | 2019-04-09 20:34 | NUR ---
PT IN BED AAO X4 VERBAL DENIES HEADACHE OR DIZZINESS NO DISTRESS LUNGS CTA INTACT DRESSING TO RT KNEE, WITH MADINA DRAINAGE PATENT SEROSANGUINOUS DRAINAGE PT C/O PAIN 6/10 PER ASSESSMENT, MEDICATED PER PRN ORDER FOR PAIN, REPOSITIONED SELF TO COMFORT, AFEBRILE, CONT ON IV ATB ORDERED, SHIFT ASSESSMENT DONE, CONT TO MONITOR.
[2019-04-09 20:50] VITALS: BP 105/47
--- NOTE | 2019-04-10 01:03 | NUR ---
PT ASKING FOR PAIN MEDICATION, C/O RT LEG PAIN 11/25 PER ASSESSMENT, NORCO PO GIVEN PER PRN ORDER, REPOSITIONED SELF TO COMFORT, CONT TO MONITOR.
--- NOTE | 2019-04-10 03:57 | NUR ---
ASLEEP DURING ROUNDS NO S/SX OF PAIN OR DISCOMFORTS, CHECKED AT INTERVALS.
[2019-04-10 06:09] VITALS: BP 93/51
--- NOTE | 2019-04-10 06:59 | NUR ---
PT AWAKE DENIES PAIN, NO DISTRESS, MADINA DRAINAGE CLOUDY PUS LIKE, EMPTIED 20CC AFEBRILE, BP 93/51, ASYMTOMATIC, DUE MEDS GIVEN, WILL CONT TO MONITOR.
[2019-04-10 07:01] LABS: BASOPHIL % 0.5 % (0-2); PLATELET COUNT 258 x10^3mcL (130-400)
[2019-04-10 07:12] LABS: RED CELL DISTRIBUTION WIDTH 14.8 % (11.5-14.5)
--- NOTE | 2019-04-10 07:50 | NUR ---
RECEIVED PATIENT RESTING IN BED, NO ACUTE DISTRESS NOTED. PATIENT DENIES HEADACHE. PATIENT REPORTS MILD PAIN TO RIGHT KNEE 07/26, REPOSITIONED PATIENT FOR COMFORT, WILL MEDICATED PER PROTOCOL. LUNG SOUNDS CTA, PATIENT DENIES SOB, PT ON 3 L NASAL CANNULA. PATIENT STATES SHE DOES NOTED USE OXYGEN AT HOME, REDUCAED PATIENT NC TO 1.5L AT THIS TIME. BOWEL SOUNDS ACTIVE X4, PATIENT REPORT PREVIOUS SMALL BM. AV SHUT NOTED TO NICA; +BRUIT/THRILL. GENERALIZED WEAKNESS NOTED. EDEMA NOTED TO RLE, X2 INCISION WITH MADINA DRAIN. IV TO RFA SALINE LOCK, CDI & PATENT, NO S/S OF INFILTRATION. CALL LIGHT WITHIN REACH, BED IN LOW POSITION, WILL CONTINUE TO MONITOR.
[2019-04-10 08:01] LABS: CALCIUM 8.7 mg/dL (8.5-10.1); CARBON DIOXIDE 27.6 mmol/L (21-32); POTASSIUM SERUM 4.5 mmol/L (3.5-5.1)
[2019-04-10 08:36] VITALS: BP 115/54
--- NOTE | 2019-04-10 09:05 | NUR ---
IV ABXS STARTED AT THIS TIME, MEDICATED PATIENT WITH TYLENOL PER PROTOCOL (SEE EMAR) FOR RIGHT KNEE PAIN 08/26. EDUCATED PATIENT ON PAIN MANAGMENT. ALL NEEDS MET AT THIS TIME, WILL CONTINUE TO MONITOR.
--- NOTE | 2019-04-10 10:11 | NUR ---
HEMODIALYSIS NURSE AT BEDSIDE.
--- NOTE | 2019-04-10 12:00 | NUR ---
PATIENT WAS C/O OF MILD PAIN TO RIGHT LOWER EXTREMITY 07/26, MEDICATED PATIENT WITH TYLENOL PER PROTOCOL (SEE EMAR). WILL CONTINUE TO MONITOR & MANAGE PAIN.
--- NOTE | 2019-04-10 12:00 | NUR ---
PATIENT WAS C/O OF MOD PAIN TO RIGHT LOWER EXTREMITY 09/25, MEDICATED PATIENT WITH NORCO PER PROTOCOL (SEE EMAR). EDUCATED PATIENT ON PAIN MANAGEMENT, REPOSITION PATIENT FOR COMFORT. WILL CONTINUE TO MONITOR & MANAGE PAIN.
[2019-04-10 13:00] VITALS: BP 105/49
--- NOTE | 2019-04-10 13:00 | NUR ---
HEMODIALYSIS COMPLETE AT THIS TIME, 1L OUTPUT. VITAL SIGNS STABLE; BP:105/49 HR 66, TEMP 97.8. NO ACUTE CHANGES NOTED, ALL NEEDS MET AT THIS TIME. WILL CONTINUE TO MONITOR FOR CHANGES.
[2019-04-10 16:44] VITALS: BP 93/59
--- NOTE | 2019-04-10 16:47 | NUR ---
PATIENT WAS C/O INCREASE PAIN TO RLE 05, MEDICATED PATIENT WITH NORCO PER PROTOCOL (SEE EMAR). ALL NEEDS MET AT THIS TIME. WILL CONTINUE TO MONITOR PATIENT.
--- NOTE | 2019-04-10 18:07 | NUR ---
PATIENT RESTING IN BED COMFORTABLEY, FAMILY AT BEDSIDE. PATIENT DENIES PAIN AT THIS TIME. NO ACUTE CHANGES NOTED THROUGH OUT SHIFT. DENIES SOB, ON 2L NC. IV TO RFA SALINE LOCK, CDI&PATENT. ALL NEEDS MET AT THIS TIME. CALL LIGHT WITHIN REACH, BED IN LOW POSITION. WILL ENDORSE REPORT TO NIGHT RN.
--- NOTE | 2019-04-10 20:06 | NUR ---
COMFORTABLE IN BED DURING INITIAL ROUNDS, NOT IN ANY DISTRESS ON 02 @ 2L/MIN NC SATURATING 97% NO COUGHING OR CHEST CONGESTION, LUNGS CLEAR TO AUSCULTATION SALINE LOCK RFA PATENT NON INFIL, PT HAS DIALYSIS TODAY PER REPORT PUTTING OUT 1 LITER AND LUANN WELL, PRESSURE DRESSING TO NICA AV SHUNT, RT THIGH S/P I&D WITH INTACT DRESSING WITH MADINA DRAINAGE TO COLLECTING BULB, HAS THICK CLOUDY OUTPUT, RT THIGH REMAINED SWOLLEN PAIN TO TOUCH, REPOSITIONED SELF TO COMFORT SHIFT ASSESSMENT DONE, CONTACT ISOLATION FOR MRSA WOUND, POSTED, CONT TO MONITOR, CALL LIGHT AT REACH.
[2019-04-10 20:54] VITALS: BP 103/50
--- NOTE | 2019-04-10 22:17 | NUR ---
SEEN BY DR ANTONIO AND DR SANTOS, AWAITING FOR ORDERS.
[2019-04-11 05:14] VITALS: BP 123/56
--- NOTE | 2019-04-11 06:17 | NUR ---
PT SLEPT WELL DENIES PAIN NO DISTRESS LUNGS CTA, AFEBRILE MADINA DRAINAGE OUTPUT FROM RT THIGH CELLULITIS IS 30CC SEROSANGUINOUS AND THICK DRAINAGE, CONT ON IV ATB ORDERED, NO ADV REACTION, ATTENDED NEEDS CALL LIGHT AT REACH, WILL ENDORSE TO INCOMING SHIFT FOR F/U CARE.
--- NOTE | 2019-04-11 07:20 | NUR ---
RECIEVED PT RESTING IN BED WITH NO C/O PAIN OR DISTRESS. A/O X4 WITH NO PIZANO OR DIZZINESS. LUNGS CTAB, NO SOB. PT FOUND ON 2 LPM O2 NC. MADINA DRAIN INTACT AND DRAINING TO RIGHT THIGH. DRESSING CDI. SALINE LOCK TO RFA, INTACT AND PATENT WITH NO REDNESS. SAFETY PRECAUTIONS IN PLACE, CALL LIGHT WITHIN REACH, WILL MONITOR. PT ON CONTACT PRECAUTIONS.
[2019-04-11 07:54] LABS: CALCIUM 8.4 mg/dL (8.5-10.1); CARBON DIOXIDE 29.7 mmol/L (21-32); POTASSIUM SERUM 4.4 mmol/L (3.5-5.1)
[2019-04-11 07:58] LABS: BASOPHIL % 0.4 % (0-2); PLATELET COUNT 256 x10^3mcL (130-400); RED CELL DISTRIBUTION WIDTH 14.4 % (11.5-14.5)
[2019-04-11 08:00] LABS: CREATININE SERUM 5.5 mg/dL (0.6-1.0)
[2019-04-11 08:28] VITALS: BP 140/63
--- NOTE | 2019-04-11 10:23 | NUR ---
NORCO GIVEN PER EMAR FOR C/O 09/25 NRIGHT LEG PAIN. WILL REASSESS.
--- NOTE | 2019-04-11 14:52 | NUR ---
PT RESTING COMFORTABLY IN BED WITH NO C/O PAIN OR DISTRESS. SAFETY PRECAUTIONS IN PLACE, CALL LIGHT WITHIN REACH, WILL MONITOR.
--- NOTE | 2019-04-11 16:17 | NUR ---
NORCO GIVEN PER EMAR FOR C/O 6/10 LEG PAIN, WILL REASSESS.
[2019-04-11 17:48] VITALS: BP 100/48
--- NOTE | 2019-04-11 18:48 | NUR ---
PT STABLE WITH NO C/O PAIN OR DISTRESS. A/O X4 WITH NO PIZANO OR DIZZINESS. NO SOB NOTED. PT ON 2 LPM O2 NC. 30CC OUTPUT FROM MADINA. RIGHT WRIST IV INTACT AND PATENT WITH NO REDNESS OR INFLAMMATION. SAFETY PRECAUTIONS IN PLACE, CALL LIGHT WITHIN REACH, WILL ENDORSE TO NIGHT NURSE.
--- NOTE | 2019-04-11 20:00 | NUR ---
SHIFT REASSESSMENT DONE.PATIENT ALERT AND ORIENTED.MAKE NEEDS KNOWN TO STAFF,CONTACT ISOLATION.THIGH ABSCESS.WEAKNESS ALL EXT.R WRIST HEPLOCK.MEDSURG.AMY ARM SHUNT.HD ACCESS.CALL LIGHT IN REACH.
[2019-04-11 20:44] VITALS: BP 113/53
--- NOTE | 2019-04-11 22:23 | NUR ---
PATIENT BLOOD SUGAR 189,GIVEN 3 UNITS RISS PLUS LANTUS ORDERED.
--- NOTE | 2019-04-12 00:35 | NUR ---
CHECKED AT INTERVALS,SLEEPING,CONTACT ISOLATION MAINTAINED.
[2019-04-12 04:36] VITALS: BP 108/50
--- NOTE | 2019-04-12 05:54 | NUR ---
PATIENT BS 67,NO SYMPTOMS PRESENTED,GIVEN APPLE JUICE AND CRACKERS,WILL RECHECKED BS IN 20 MINUTES.
--- NOTE | 2019-04-12 05:59 | NUR ---
I AND O,HD PATIENT.NO URINE OUTPUT THIS SHIFT.HEPLOCK INTACT L UPPER ARM AV SHUNT,HD ACCESS.WILL ENDORSE TO NEXT SHIFT.
--- NOTE | 2019-04-12 06:10 | NUR ---
AFTER APPLE JUICE AND CRACKERS BS 70.PATIENT HAD LANTUS LAST NIGHT.
[2019-04-12 06:20] LABS: BASOPHIL % 0.4 % (0-2); PLATELET COUNT 290 x10^3mcL (130-400)
[2019-04-12 06:40] LABS: RED CELL DISTRIBUTION WIDTH 14.7 % (11.5-14.5)
[2019-04-12 06:41] LABS: CALCIUM 8.8 mg/dL (8.5-10.1); CARBON DIOXIDE 29.9 mmol/L (21-32); POTASSIUM SERUM 4.6 mmol/L (3.5-5.1)
[2019-04-12 06:56] LABS: CREATININE SERUM 7.4 mg/dL (0.6-1.0)
[2019-04-12 07:36] VITALS: BP 109/47
--- NOTE | 2019-04-12 07:37 | NUR ---
RECEIVED AWAKE, ALERT AND ORIENTED. IN NO RESP. DISTRESS. VS WNL. HL PATENT. NO C/O PAIN OR DISCOMFORT AT THIS TIME. CALL LIGHT WITHIN REACH. WILL CONTINUE WITH PLAN OF CARE.
--- NOTE | 2019-04-12 12:22 | NUR ---
Follow-up Nutrition Assessment: 260/B JENNIFFER DELUCA MR FU Dx: Bilateral leg cellulitis PMHx: ESRD, hypothyroidism, DM Labs: (04/12) NA 135L, BG 72L, BUN 31H, CREAT 7.4H, HGB 8.1L Meds: Colace, D 50%, Humulin, lantus, Lipitor, morphine, synthyroid, vancomycin Diet: Renal PO Intake: (04/11) dinner, breakfast 40%, lunch 45%, (04/10) dinner, breakfast 40%, lunch 50% Weights: (04/06) 75.8 kg, (04/11) 75 kg, (04/12) 75.5 kg I/Os: (04/11) 900/21 (879) Skin: RLE cellulitis, MADINA drain R thigh Iggy: 19 Edema: RLE GI: poor appetite, no N/V Last BM: 04/10 RD Note (04/12): Patient said that she has good appetite and ate her breakfast this morning. Patient denies any N/V/D/C at this time. NCM handout on CKD+ DM was provided to the patient during previous RD visit. Estimated Nutritional Needs Based on ideal body weight (52 kg) Energy: 9354-8632 kcal/day (30-35 kcal/kg for ESRD) Protein: 62-78 g/day (1.2-1.5 g/kg for ESRD) Fluid: 9159-5124 mL/day (1 mL/kcal) or per MD Nutrition Diagnosis: 1. Increased nutrient need related to renal dysfunction as evidenced by pt with ESRD on HD. (ongoing) Intervention: 1. Recommend continuing Renal diet. No new recommendations at this time. Monitor/Evaluate: Goal: Have pt meet at least 75% of estimated needs Monitor: PO intake, Labs, GI function F/U in 7 days as low risk 04/19
--- NOTE | 2019-04-12 12:22 | NUR ---
1. Recommend continuing Renal diet. No new recommendations at this time.
--- NOTE | 2019-04-12 14:26 | NUR ---
PT C/O PAIN TO LEG 5/10 MEDICATED WITH NORCO PER EMAR.
--- NOTE | 2019-04-12 15:43 | NUR ---
REPORTED FAIR RELIEF. NO ACUTE DISTRESS NOTED. CALL LIGHT WITHIN REACH.
[2019-04-12 16:40] VITALS: BP 116/50
--- NOTE | 2019-04-12 18:53 | NUR ---
PAGED STEPHIE YU TO INQUIRE ABOUT HD ORDER FOR PT IN ORDER TO PERFORM CT WITH CONTRAST. RECEIVED T.O. FOR HD REQUEST FOR SERVICE AND FOR HD NURSE TO CALL TOMORROW FOR ORDERS. CALLED [facility] HD NURSE TO REQUEST OCEAN EXPORT AGENT HD TOMORROW AND MADE AWARE OF NEED TO HAVE CT SCAN DONE PRIOR TO HD. CALLED RADIOLOGY SPOKE WITH ELEAZAR FROM CT SCAN AND MADE AWARE STATED THAT THEY WOULD TRY TO GET PT DONE TONIGHT IF NOT OCEAN EXPORT AGENT. REQUESTED TO MAKE SURE TO ENDORSE THAT HD BE HELD UNTIL CT COMPLETED. ATTENDING NURSE MADE AWARE.
--- NOTE | 2019-04-12 18:58 | NUR ---
PT REMAINS IN NO DISTRESS, AWAKE AND ALERT. NO CHANGES IN VS. NO C/O PAIN OR DISCOMFORT. CALL LIGHT WITHIN REACH. WILL BE ENDORSED TO INCOMING SHIFT.
--- NOTE | 2019-04-12 19:36 | NUR ---
SHIFT REASSESSMENT DONE.PATIENT ALERT AND ORIENTED.MAINLY OCCITAN,NEEDS ANTICIPATED.BREATHING EASY.GEN WEAKNESS,PHYSICAL TX ORDERED.R WIST HEPLOCK INTACT.L UPPER ARM AV SHUNT,HD ACCESS.FOR HD TOMORROW.ALSO FOR TRANSFER TO HIGHER LEVEL OF CARE [place],BEING ARRANGE,SS.HAS TO HAVE CT OF LE WITH IV CONTRAST FIRST AND [facility] WANTED RESULT FORWARD TO THEM BY TOMORROW.CALL LIGHT IN REACH.
[2019-04-12 20:36] VITALS: BP 109/51
--- NOTE | 2019-04-12 20:54 | NUR ---
PM MEDS GIVEN,SWALLOWS WELL.BLOOD SUGAR 169,CLAIMED SHE ATE DINNER WELL.RISS SCALE AND LANTUS GIVEN ORDERED.REMAINS ON CONTACT ISOLATION.FOR CT OF RIGHT LOWER EXT WITH IV CONTRAST,RESULT NEED TO BE RELAYED TO [facility] PER REPORT PRIOR TO TRANSFER TO HIGHER LEVEL OF CARE.ALSO FOR HD IN AM,HAS ONLY 24 GUAGE R WRIST,NEED A AT LEAST 20 GUAGE PRIOR TO TEST.WILL TRY TO PU A NEW ONE SALEEM,CHARGE NURSE FRANTZ AWARE.
--- NOTE | 2019-04-12 23:09 | NUR ---
CT CALLED AT THIS TIME BUT MADE AWARE THAT IV SITE IS ONLY GUAGE 24,WILL TRY TO PUT ONE GUAGE 20 AT LEAST.KATELYN WILL TRY,SHE IS A VERY HARD STICK.
--- NOTE | 2019-04-12 23:52 | NUR ---
NEW IV SITE RFA 20 GUAGE WITH GOOD BLOOD RETURN.CT MADE AWARE.
--- NOTE | 2019-04-13 | NUR ---
TO CT AT THIS TIME VIA MARY GALICIA TECH,IN STABLE CONDITION.
--- NOTE | 2019-04-13 00:20 | NUR ---
BACK FROM CT.
[2019-04-13 05:37] VITALS: BP 116/53
--- NOTE | 2019-04-13 06:58 | NUR ---
PATIENT MADINA DRAIN WITH 30 CC.MILKY LIKE COLOR.WILL ENDORSE TO NEXT SHIFT.HD TODAY.POSSIBLE TRANSFER TO HIGHER LEVEL OF CARE.WILL ENDORSE TO NEXT SHIFT.
--- NOTE | 2019-04-13 07:15 | NUR ---
RECEIVED PT FROM NIGHT NURSE. PT IS LAYING DOWN IN BED WITH HOB UP. PT LOOKS TO BE IN NO ACUTE DISTRESS AT THIS TIME AND DENIES ANY PAIN. RESPIRATIONS EVEN AND UNLABORED ON 2L NC. IV SITE PATENT WITH NO SIGNS OF ERYTHEMA OR SWELLING. NICA SHUNT PRESENT. MADINA DRAIN PRESENT TO RIGHT UPPER THIGH DRAINING SEROSANGENOUS DRAINAGE. CALL LIGHT WITHIN REACH. WILL CONTINUE TO MONITOR.
--- NOTE | 2019-04-13 07:25 | NUR ---
DIALYSIS NURSE ARRIVED. PROVIDED WITH ORDERS AND LABS. CURRENT LABS DRAWN BUT RESULTS NOT IN YET. ORDER STATES TO CALL BAR MACHINE OPERATOR FOR DIALYSIS ORDERS. PAGED DR. BUTLER. AWAITING CALL BACK
--- NOTE | 2019-04-13 07:35 | NUR ---
RECEIVED CALL BACK FROM DR. BUTLER. DR. BUTLER INFORMED TO START DIALYSIS SAME ORDERS DIALYSIS FROM 04/[address] BUTLER WHEN LABS ARE IN FOR TODAY. CONFIRMED 04/[address] BUTLER. WILL NOTIFY DR. BUTLER WHEN 04/13 LABS ARE IN. WILL CONTINUE TO MONITOR.
[2019-04-13 07:57] LABS: BASOPHIL % 0.6 % (0-2); PLATELET COUNT 274 x10^3mcL (130-400); RED CELL DISTRIBUTION WIDTH 14.4 % (11.5-14.5)
[2019-04-13 08:11] LABS: CALCIUM 7.7 mg/dL (8.5-10.1); CARBON DIOXIDE 27.5 mmol/L (21-32); POTASSIUM SERUM 4.8 mmol/L (3.5-5.1)
[2019-04-13 08:12] VITALS: BP 113/55
[2019-04-13 08:17] LABS: CREATININE SERUM 8.7 mg/dL (0.6-1.0)
--- NOTE | 2019-04-13 08:47 | NUR ---
DR. VERA NOTIFIED OF LAB RESULTS FOR 04/[address] VERA OF DR. BUTLER'S ORDERED. DR. VERA SPOKE WITH DIAYLSIS NURSE. WILL CONTINUE TO MONITOR.
--- NOTE | 2019-04-13 12:05 | NUR ---
DIALYSIS COMPELTE. PT LOOKS TO BE IN NO ACUTE DISTRESS AT THIS TIME. TOTAL OUTPUT FROM DIALYSIS ACCORDING TO DIALYSIS NURSE IS 1.2L. PT TOLERATED WELL. CURRENT BLOOD PRESSURE IS 123/50, HR: 61, TEMP: 97.4. PT HAD A BOWEL MOVEMENT. CLEANED UP PT AND CAHNGED SHEET AND GOWN. MADE PT COMFORTABLE IN BED. CALL LIGHT WITHIN REACH. WILL CONTINUE TO MONITOR.
--- NOTE | 2019-04-13 13:13 | NUR ---
PHYSCIAL THERAPY AT BEDSIDE. WILL CONTINUE TO MONITOR.
--- NOTE | 2019-04-13 13:58 | NUR ---
PAGED DR. SANTOS TO CLARIFY BLOOD TRANSFUSION ORDERS FOR TRANSFUSION.
--- NOTE | 2019-04-13 14:16 | NUR ---
CONSENT FOR INCISION AND DRAINAGE PER DR. SANTOS IS SIGNED AND IN PT'S CHART.
--- NOTE | 2019-04-13 14:48 | NUR ---
PAGED DR. SANTOS FOR THE SECOND TIME IN REGARDS TO THE PREPOP BLOOD TRANSFUSION.
--- NOTE | 2019-04-13 15:20 | NUR ---
PT SIGNED BLOOD TRANSFUSION CONSENT, SIGNED BY RESIDENT AN PUT INTO PT'S CHART.
--- NOTE | 2019-04-13 17:35 | NUR ---
STARTED BLOOD TRANSFUSION ORDERED. PRETRANSFUSION VITAL SIGNS ARE TEMP: 97.7 ORAL, HR: 67, BP: 108/48, RR: 16, O2: 94% ON 2L NC. VERIFIED BLOOD WITH SECONDARY RN. EDUCATED PT ON TRANSFUSION ADVERSE REACTIONS, PT VERBALIZED UNDERSTANDING OF EDUCATION. WILL STAY WITH PT FOR 15 MINUTES TO ASSESS FOR ADVERSE REACTIONS. FAMILY MEMBERS AT BEDSIDE.
--- NOTE | 2019-04-13 17:51 | NUR ---
REASSESSED PT 15 MINUTES AFTER STARTING BLOOD TRANSFUSION. PT LOOKS TO BE IN NO ACUTE DISTRESS AT THIS TIME AND PT DENIES ANY CHILLS, SOB OR SIGNS OF ADVERSE REACTIONS TO BLOOD TRANSFUSION. VITALS SIGNS 15 MINUTES AFTER STARTING BLOOD TRANSFUSION IS TEMP: 97.5, HR: 67, BP: 141/59, RR: 16, O2: 99% ON 2L NC. PT IS SITTING UP IN BED EATING DINNER. FAMILY MEMBERS AT BEDSIDE. WILL CONTINUE TO MONITOR.
[2019-04-13 17:53] VITALS: BP 141/59
--- NOTE | 2019-04-13 19:31 | NUR ---
ENDORSED TO NURSE RUIZ
--- NOTE | 2019-04-13 19:42 | NUR ---
RECEIVED PT FROM PREVIOUS SHIFT. PT A/OX4. DENIES PAIN. DENIES SOB ON RA. IV PATENT AND INFUSING PRBC WITH NO S/S OF INFILTRATION. PT IN NO ACUTE DISTRESS. MADINA DRAIN TO R UPPER THIGH, WITH SEROSANGUINOUS OUTPUT. SURGICAL INCISION, CDI. CALL LIGHT WITHIN REACH, BED IN LOW POSITION. WILL CONTINUE TO MONITOR.
--- NOTE | 2019-04-13 20:45 | NUR ---
BLOOD TRANSFUSION COMPLETE. NO S/S OF TRANSFUSION REACTIONS. VSS. IV PATENT. CALL LIGHT WITHIN REACH, BED IN LOW POSITION. WILL CONTINUE TO MONITOR.
[2019-04-13 21:37] VITALS: BP 122/52
--- NOTE | 2019-04-14 00:45 | NUR ---
PT RESTING IN NO ACUTE DISTRESS. RR EVEN AND UNLABORED. CALL LIGHT WITHIN REACH, BED IN LOW POSITION. WILL CONTINUE TO MONITOR.
[2019-04-14 05:12] VITALS: BP 127/53
[2019-04-14 06:23] LABS: BASOPHIL % 0.6 % (0-2); PLATELET COUNT 264 x10^3mcL (130-400)
[2019-04-14 06:29] LABS: RED CELL DISTRIBUTION WIDTH 16.2 % (11.5-14.5)
--- NOTE | 2019-04-14 07:22 | NUR ---
REPORT TAKEN FROM COMPUTER SYSTEMS ANALYST NURSE AT THE BEDSIDE, PATIENT RESTING WITH EYES CLOSED AND DID NOT WAKE FOR REPORT. CHEST RISE AND FALL OBSERVED, PATIENT IN NO ACUTE DISTRESS, WILL CONTINUE TO MONITOR.
--- NOTE | 2019-04-14 08:16 | NUR ---
PHYSICAL THERAPY DAILY NOTES CO-SIGN All documentation done by the Quality Assurance Consultant for 04/13/19 has been reviewed. I agree with the documentation. Reviewed/Co-Signed by: Kassidy Ricardo PT Documentation Done by:MAXIMUS MACIAS PTA
[2019-04-14 08:23] VITALS: BP 122/55
[2019-04-14 08:24] VITALS: Ht 160 cm; Wt 75.0 kg
[2019-04-14 16:33] VITALS: BP 142/60
--- NOTE | 2019-04-14 19:00 | NUR ---
REC'D REPORT FROM ANITA FLYNN. PT CURRENTLY IN THE OR FOR I&D.
--- NOTE | 2019-04-14 19:14 | NUR ---
REPORT GIVEN TO GLOBAL CHIEF CREATIVE OFFICER NURSE, CARE ENDORSED
--- NOTE | 2019-04-14 21:19 | NUR ---
REC'D REPORT FROM OR NURSE. S/P I&D OF RLE. PER OR NURSE "ABSOLUTELY NO DRESSING CHANGES." DR. SANTOS TO CHANGE THE DRESSING ON MONDAY 04/16 IN OR UNDER ANESTHESIA. REPORTED TWO INCISIONS- R LATERAL TOP OF THIGH TO BOTTOM OF THIGH AND BELOW THE KNEE. PACKED WITH KERLIX, ABD PAD X2 ON TOP AND SECURED WITH JERAD WRAP. INQUIRED REGARDING ORDER FOR WOUND VAC PLACEMENT ON 04/15 @ 0700. OR NURSE STATED WOUND CARE NURSE IS TO EVALUATE FOR WOUND VAC AND AGAIN EMPHASIZED NO DRESSING CHANGES.
--- NOTE | 2019-04-14 21:25 | NUR ---
DR. SANTOS AT THE NURSE'S STATION. INQUIRED REGARDING CLARIFICATION OF WOUND CARE ORDERS. DR. SANTOS STATED OK FOR WOUND VAC TO BE APPLIED ON FRIDAY. DAY NURSE CAN REMOVE THE JERAD WRAP AND "LET THE LEG BREATHE FOR A LITTLE" THEN REAPPLY THE JERAD WRAP A LITTLE LOOSER.
--- NOTE | 2019-04-14 21:35 | NUR ---
PT BACK FROM OR. PT RESTING IN BED. AAOX4, SPEECH CLEAR, FOLLOWS COMMANDS. MED SURG, NO TELE. DENIES CP, DIZZINESS, OR PALPITATIONS. DENIES RESP DISTRESS OR SOB. BREATHING EVEN/UNLABORED ON 2L O2 VIA NC WITH HUMIDIFIER, SPO2 96%. ABD SOFT/ROUND. DENIES ABD PAIN, TENDERNESS, OR N/V. S/P RLE I&D. JERAD BANDAGES FROM TOP OF THIGH TO BOTTOM OF THIGH WELL WHOLE CALF CDI. PICTURES IN CHART. PT REPORT 8/10 RLE PAIN. PT DENIED PAIN MEDS, SHE WAS JUST GIVEN SOMETHING FOR PAIN "A FEW MINUTES AGO." INFORMED PT TO CALL IF SHE IS STILL IN PAIN AFTER 30 MIN. IV TO RFA FLUSHED AND PATENT. LFA AV SHUNT, BRUIT/THRILL PRESENT. CALL LIGHT WITHIN REACH, BED AT LOWEST POSITION. WILL CONTINUE TO MONITOR.
[2019-04-14 21:36] VITALS: BP 134/54
--- NOTE | 2019-04-14 22:14 | NUR ---
PT ATE A SANDWICH THEN VOMITED ~150 ML. MOSTLY FOOD RESIDUAL. STILL C/O RLE PAIN 7-8/10. DILAUDID AND ZOFRAN GIVEN PER ORDER. RLE ELEVATED WITH PILLOW. DRESSINGS CDI. WILL MONITOR FOR RELIEF.
--- NOTE | 2019-04-15 00:06 | NUR ---
PT C/O 07/26 RLE PAIN. NORCO GIVEN PER ORDER. PT ALSO VOMITED ANOTHER 50 ML. NO ZOFRAN DUE AT THIS TIME. REPORTS NAUSEA IS GETTING A LITTLE BETTER.
[2019-04-15 00:56] VITALS: BP 108/39
--- NOTE | 2019-04-15 01:26 | NUR ---
PT RESTING IN BED WITH EYES CLOSED. NO SIGNS OF DISTRESS NOTED. BREATHING EVEN/UNLABORED ON 2L O2 VIA NC WITH HUMIDIFIER. NO S/SX OF PAIN NOTED. CALL LIGHT WITHIN REACH, BED AT LOWEST POSITION. WILL CONTINUE TO MONITOR.
[2019-04-15 05:18] VITALS: BP 118/46
--- NOTE | 2019-04-15 05:57 | NUR ---
PT RESTING IN BED WITH EYES CLOSED. AWAKENS WITH VERBAL STIMULI. BREATHING EVEN/UNLABORED ON 2L O2 VIA NC. PT REPORTS MILD PAIN 3/10 TO R UPPER THIGH. NORCO GIVEN PER ORDER. DENIES N/V. DRESSINGS TO RLE CDI. PULSES PALPABLE. SKIN WARM/DRY. PT HAD A BM THIS MORNING. CLEANED AND CHANGED. PLAN FOR HD TODAY. CALL LIGHT WITHIN REACH, BED AT LOWEST POSITION. WILL ENDORSE TO DAY NURSE.
[2019-04-15 06:45] LABS: BASOPHIL % 0.1 % (0-2); PLATELET COUNT 255 x10^3mcL (130-400)
[2019-04-15 06:50] LABS: RED CELL DISTRIBUTION WIDTH 16.2 % (11.5-14.5)
--- NOTE | 2019-04-15 07:12 | NUR ---
REC'D CALL BACK FROM DR. SANTOS. UPDATE GIVEN. STATED HE WOULD LIKE FOR THE DAY NURSE TO REMOVE THE JERAD WRAP ONLY, LEAVE WRAP OFF FOR ONE HOUR, THEN REWRAP LOOSER THAN HOW IT WAS ORIGINALLY WRAPPED. ALSO STATED PLAN FOR DRESSING CHANGE ON MONDAY 04/16 WITH WOUND VAC PLACEMENT IN THE OR. NPO AFTER MIDNIGHT TODAY. REPORT GIVEN TO CIARA FLYNN AND AWARE OF DR. SANTOS'S ORDERS.
[2019-04-15 07:31] LABS: BILIRUBIN TOTAL 0.4 mg/dL (0.20-1.00); CALCIUM 8.3 mg/dL (8.5-10.1); CARBON DIOXIDE 23.1 mmol/L (21-32); TOTAL PROTEIN, SERUM 7.4 g/dL (6.4-8.2)
[2019-04-15 07:41] LABS: ALBUMIN 2.5 g/dL (3.4-5.0)
[2019-04-15 07:43] LABS: POTASSIUM SERUM 5.6 mmol/L (3.5-5.1)
--- NOTE | 2019-04-15 08:08 | NUR ---
AT 0720 - RECEIVED PATIENT FROM NIGHT NURSE. AWAKE, ALERT AND ORIENTED. DRESSING TO RLE IS DRY. NIGHT NURSE HAS JUST RECEIVED ORDERS FROM DR SANTOS TO CHANGE OUTER DRESSING (JERAD BANDAGE) AND REAPPLY MORE LOOSELY. ON CONTACT ISOLATION FOR MRSA OF WOUND. AT 0745 - PATIENT SITTING UP IN BED FOR BREAKFAST. RECEIVED CALL FROM LAB WITH K OF 5.6. PATIENT IS SCHEDULED FOR HEMODIALYSIS TODAY. AT 0753 - DIALYSIS NURSE AT BEDSIDE FOR HD. PROVIDED WITH LAB RESULTS.
[2019-04-15 08:55] VITALS: BP 125/49
--- NOTE | 2019-04-15 09:50 | NUR ---
DIALYSIS IN PROGRESS. VSS.
--- NOTE | 2019-04-15 11:27 | NUR ---
DIALYSIS COMPLETED. TOTAL OF 3,000 ML REMOVED. VSS.
--- NOTE | 2019-04-15 13:56 | NUR ---
RECEIVED CALL FROM ROSA AT [facility], STATES THEY MAY HAVE BED AVAILABLE FOR THIS PATIENT. JULI CONTACTED DR. ASHRAF, NO NEED TO TRANSFER PER DR. ASHRAF AT THIS TIME.
--- NOTE | 2019-04-15 14:22 | NUR ---
AT 1130 - C/O PAIN IN R LEG. MEDICATED WITH NORCO PER EMAR. BLOOD GLUCOSE LEVEL 288. GIVEN 9 UNITS REGULAR INSULIN PER SLIDING SCALE. AT 1300 - OUTER DRESSING/JERAD BANDAGE TO RLE CHANGED ORDERED BY DR SANTOS. NOTED BRIGHT SEROSANGUINOUS BLEEDING FROM BACK OF R THIGH. APPLIED ABD PAD UNDER BANDAGE IN THAT AREA. AT 1410 - RESTING QUIETLY. APPEARS COMFORTABLE.
[2019-04-15 16:44] VITALS: BP 113/45
--- NOTE | 2019-04-15 17:18 | NUR ---
BLOOD GLUCOSE 341. GIVEN 12 UNITS REGULAR INSULIN PER RISS. ALSO GIVEN NORCO FOR PAIN IN RLE. PATIENT SIGNED CONSENT FOR TOMORROW'S PROCEDURE OF DRESSING CHANGE R LEG WOUNDS AND PALCEMENT OF WOUND VAC. DRESSING TO RLE REMAINS DRY AND INTACT.
--- NOTE | 2019-04-15 18:37 | NUR ---
AWAKE, ALERT AND ORIENTED. VSS. AFEBRILE. DRESSING TO RLE REMAINS DRY AND INTACT. PAIN UNDER CONTROL AT THIS TIME. PATIENT EATING A CCHO DIET. CONTACT PRECAUTIONS MAINTAINED. WILL ENDORSE CARE TO NIGHT NURSE.
--- NOTE | 2019-04-15 19:35 | NUR ---
RECEIVED PT FROM DAY SHIFT RN. PT AAOX4. PT DENIES PIZANO/DIZZINESS. BREATHING EVEN AND UNLABORED ON NC 2L/MIN, NO SOB NOTED. ABD SOFT/ROUND ACTIVE BOWEL SOUNDS. DENIES ABD PAIN/N/V. IV RFA PATENT, SL. RLE EDEMA NOTED, PALPABLE PULSES. DRESSING TO RLE CDI. HD AV SHUNT TO LEFT ARM. PT DENIES ANY PAIN/DISTRESS. CALL BUTTON WITHIN REACH. SAFETY PRECAUTIONS IN PLACE. CONTACT ISOLATION. WILL CONTINUE TO MONITOR.
[2019-04-15 20:13] VITALS: BP 111/45
--- NOTE | 2019-04-16 01:37 | NUR ---
ROUNDS MADE. PT RESTING. BREATHING EVEN AND UNLABORED NO SIGNS OF DISTRESS. CALL BUTTON WITHIN REACH. SAFETY PRECAUTIONS IN PLACE. WILL CONTINUE TO MONITOR.
--- NOTE | 2019-04-16 06:02 | NUR ---
PT SLEPT MOST OF THE NIGHT WITH NO SIGSN OF DISTRESS. BREATHING EVEN AND UNLABORED ON NC 2L/MIN. NO SOB NOTED. PT REPORTED HAVING RLE PAIN, MEDICATED PER EMAR WITH RELIF. IV PATENT, SL. CONTACT ISOLATION. SAFETY PRECAUTIONS IN PLACE. WILL CONTINUE TO MONITOR AND ENDORSE CARE TO DAY SHIFT RN.
[2019-04-16 06:22] VITALS: BP 94/43
--- NOTE | 2019-04-16 06:22 | NUR ---
PT BP 94/43 (60), PT ASYMPTOMATIC DR KELLY MADE AWARE. PER DR KELLY, TO CONTINUE TO MONITOR BP AND NOTIFY IF SYSTOLIC LESS THAN 90. NO ACUTE DISTRESS OBSERVED. WILL CONTINUE TO MONITOR.
[2019-04-16 06:26] LABS: CALCIUM 7.9 mg/dL (8.5-10.1); POTASSIUM SERUM 3.5 mmol/L (3.5-5.1)
[2019-04-16 06:58] LABS: CREATININE SERUM 5.8 mg/dL (0.6-1.0)
[2019-04-16 07:09] LABS: BASOPHIL % 0.4 % (0-2); PLATELET COUNT 261 x10^3mcL (130-400)
[2019-04-16 07:43] LABS: RED CELL DISTRIBUTION WIDTH 16.4 % (11.5-14.5)
[2019-04-16 08:05] VITALS: BP 99/49
--- NOTE | 2019-04-16 10:08 | NUR ---
AAO TIMES 4. MED SURG. LUNGS CTA. NO SOB. O2 SAT ON RA 96%. BS'S ACTIVE TIME 4. MAXIMILIANO WOOTEN. RLE WITH DRESSING/WRAP CDI. NPO FOR SURGERY. IV SITE PATENT TO RFA, CDI. COOPERATIVE. NO SOB. NO C/O PAIN.
--- NOTE | 2019-04-16 13:53 | NUR ---
TO OR AT 1115.
[2019-04-16 13:55] VITALS: BP 121/51
--- NOTE | 2019-04-16 14:01 | NUR ---
ARRIVED FROM PACU AT 1355. WOUND VAC ON WITH DRESSING CDI TO RIGHT LATERAL THIGH AND RLE. VS'S STABLE. NO SOB. O2 2L NC PLACED, O2 SAT 96%.
[2019-04-16 16:44] VITALS: BP 112/44
--- NOTE | 2019-04-16 18:09 | NUR ---
AAO TIMES 4. VS'S STABLE. NO SOB. SALINE LOCK TO RIGHT WRIST PATENT, CDI. NO C/O PAIN. WOUND VACCUM ON TO RIGHT LEG, FUNCTIONING CORRECTLY. DRESSING CDI. LUE AV SHUNT WITH BRUIT AND THRILL. NO C/O PAIN. COOPERATIVE.
--- NOTE | 2019-04-16 20:00 | NUR ---
RECEIVED PT IN BED, RESTING QUIETLY. A/O X4. DENIES HEADACHE/DIZZINESS. RESP. EVEN AND UNLABORED. [address], LUANN. WELL. NO ACUTE DISTRESS NOTED. AFEBRILE AND VITAL SIGNS STABLE. HL TO RFA, INTACT AND PATENT. DRESSING TO RLE , DRY AND INTACT, WITH WOUND VAC IN PLACE. NO DRAINAGE NOTED AT THIS TIME. NO COMPLAINTS NOTED AT THIS TIME. REMAINS ON CONTACT ISOLATION, WILL MAINTAIN PREC. CALL LIGHT WITHIN REACH. WILL CONTINUE TO MONITOR.
[2019-04-16 20:39] VITALS: BP 110/47
--- NOTE | 2019-04-16 22:07 | NUR ---
AV SHUNT TO NICA WITH GOOD BRUIT/THRILL. HEMODIALYSIS PT. WILL CONTINUE TO MONITOR.
--- NOTE | 2019-04-17 02:15 | NUR ---
COMPLAINED OF RLE PAIN,5/10, MEDICATED WITH NORCO ORDERED. WILL CONTINUE TO MONITOR.
--- NOTE | 2019-04-17 02:41 | NUR ---
RESTING QUIETLY , WITH EYES CLOSED, APPEARS ASLEEP, EASILY AROUSABLE. RESP. EVEN AND UNLABORED. [address], NO ACUTE DISTRESS NOTED. WILL CONTINUE TO MONITOR.
[2019-04-17 05:47] VITALS: BP 132/53
--- NOTE | 2019-04-17 06:02 | NUR ---
COMPLAINED OF RLE PAIN ,5/10, MEDICATED WITH NORCO ORDERED. AFEBRILE AND VITAL SIGNS STABLE. RESP. EVEN AND UNLABORED. [address], NO ACUTE DISTRESS NOTED.DRESSING TO RLE DRY AND INTACT,WITH WOUND VAC. IN PLACE, NO DRAINAGE NOTED AT THIS TIME. KEPT COMFORTABLE. ABLE TO REPOSITION SELF. CONTACT ISOLATION PREC. MAINTAINED. WILL CONTINUE TO MONITOR.
[2019-04-17 06:14] LABS: BASOPHIL % 0.6 % (0-2); PLATELET COUNT 261 x10^3mcL (130-400)
[2019-04-17 06:36] LABS: CALCIUM 8.2 mg/dL (8.5-10.1); CARBON DIOXIDE 30.3 mmol/L (21-32); POTASSIUM SERUM 3.8 mmol/L (3.5-5.1)
[2019-04-17 06:48] LABS: CREATININE SERUM 7.2 mg/dL (0.6-1.0)
--- NOTE | 2019-04-17 07:03 | NUR ---
RECEIVED PT FROM ANIMAL SCIENTIST NURSE. PT RESTING IN BED, AOX4, RESP E/U ON 3L NC. DENIES PAIN TO RLE AT THIS TIME, NO ACUTE DISTRESS NOTED. DRESSING TO RLE CDI W/ WOUND VAC IN PLACE. SALINE LOCKED TO RFA W/ NO ERYTHEMA OR EDEMA. BED IN LOWEST POSITION AND CALL LIGHT WITHIN REACH. WILL CONTINUE TO MONITOR.
[2019-04-17 07:14] LABS: RED CELL DISTRIBUTION WIDTH 16.1 % (11.5-14.5)
[2019-04-17 08:00] VITALS: BP 134/56
--- NOTE | 2019-04-17 10:05 | NUR ---
PT C/O RLE PAIN RATED 6/10. MEDICATED ORDERED PER EMAR, COMFORT MEASURES IMPLEMENTED. DIALYSIS STARTED AT THIS TIME. BED IN LOWEST POSITION AND CALL LIGHT WITHIN REACH. WILL CONTINUE TO MONITOR.
[2019-04-17 16:28] VITALS: BP 119/48
--- NOTE | 2019-04-17 17:14 | NUR ---
CALLED TO PICC RN [facility] [phone] FOR PICC LINE INSERTION. THEY WILL SEND NURSE RADHA FOR PROCEDURE.
--- NOTE | 2019-04-17 18:02 | NUR ---
PT RESTING IN BED, AOX4, RESP E/U ON 3L NC. REPORTED MILD PAIN TO RLE, TOLERBALE AT THIS TIME. WOUND CARE DONE, ABD PAD AND JERAD WRAP APPLIED OVER R POSTERIOR CALF WOUND, CDI, EXTREMITY ELEVATED ON PILLOW. DRESSING TO R POSTERIOR THIGH CDI. WOUND VAC TO SUCTION AT [address], NO DRAINAGE AT THIS TIME. BED IN LOWEST POSITION AND CALL LIGHT WITHIN REACH. WILL ENDORSE TO ONCOMING NURSE.
--- NOTE | 2019-04-17 18:28 | NUR ---
PT SEEN AT ROOM, AOX4. ASSISTED FROM RESTROOM BACK TO BED, GAIT SLOW BUT BALANCED W/ WALKER. O2 SAT CHECKED AT THIS TIME, 96% ON RA, RESP E/U. DENIES SOB OR CHEST PAIN. BED IN LOWEST POSITION AND CALL LIGHT WITHIN REACH. WILL ENDORSE TO ONCOMING NURSE.
--- NOTE | 2019-04-17 19:30 | NUR ---
PT RECIEVED FROM DAY NURSE. PT RESTING IN BED AT THIS TIME. DENIES PAIN OR DISCOMFORT AT THIS TIME. PT A/O X4, CALM AND COOPERATIVE. PT MS. DENIES CP, NV, DIZZINESS, AND PALPATATIONS. PALPABLE PULSES, TRACE EDEMA NOTED BLE. BREATHING E/U ON 3L NC. DENIES SOB. ABD SOFT AND ROUND, DENIES PAIN TO PALPATION. ESRD ND TTHS. NICA AV SHUNT. BRUIT AND THRILL PRESENT. GENERALIZED WEAKNESS, AMBULATORY WITH ASSIST. 2 OPEN INCISIONS NOTED TO RLE. RIGHT THIGH INCISION PACKED WITH FOAM, WOUND VAC INTACT NO DRAINAGE NOTED. WOULD TO LOWER R LEG PACKED WITH KERLIX, COVERED WITH ABD PAD. WRAPPED WITH AN JERAD BANDAGE. NO DRAINAGE NOTED. RFA IV CDI. SALINE LOCKED. BED AT LOWEST POSITION. CALL LIGHT WITHIN REACH. WILL CONTINUE TO MONITOR.
[2019-04-17 20:43] VITALS: BP 101/42
--- NOTE | 2019-04-18 | NUR ---
PT RESTING IN BED AT THIS TIME TIME. NO S/S OF ACUTE DISTRESS NOTED AT THIS TIME. BREATHING E/U ON 3L NC. BED AT LOWEST POSITION. CALL LIGHT WITHIN REACH. WILL CONTINUE TO MONITOR.
--- NOTE | 2019-04-18 01:10 | NUR ---
PT COMPLAINING OF 5/10 PAIN IN R LEG. MEDICATED WITH PRN NORCO. WILL CONTINUE TO MONITOR.
[2019-04-18 05:15] VITALS: BP 117/45
--- NOTE | 2019-04-18 06:32 | NUR ---
PT RESTING IN BED AT THIS TIME. DENIES PAIN OR DISCOMFORT. BREATHING E/U ON 3L NC. NO SIGNS OF ACUTE DISTRESS AT THIS TIME. BED AT LOWEST POSITION. CALL LIGHT WITHIN REACH. WILL ENDORSE TO DAY NURSE.
[2019-04-18 06:35] LABS: CALCIUM 8.7 mg/dL (8.5-10.1); CARBON DIOXIDE 30.2 mmol/L (21-32); POTASSIUM SERUM 4.4 mmol/L (3.5-5.1)
[2019-04-18 06:37] LABS: BASOPHIL % 0.6 % (0-2); PLATELET COUNT 273 x10^3mcL (130-400)
[2019-04-18 06:38] LABS: CREATININE SERUM 5.8 mg/dL (0.6-1.0)
[2019-04-18 07:04] LABS: RED CELL DISTRIBUTION WIDTH 15.9 % (11.5-14.5)
--- NOTE | 2019-04-18 07:10 | NUR ---
SEEN IN BED ASLEEP, AROUSEABLE, AAOX4. NO RESP DISTRESS NOTED. BREATHING E/U ON 3LPM N/C, O2SAT 96% LUNG SOUND CTA. GEN BODY WEAKNESS. WOUND VAC TO RIGHT UPPER LATERAL THIGH WOUND ONGOING WITH MINIMAL BROWISH DRAINAGE NOTED. DRSG TO RIGHT LOWER LEG WITH DRSG CDI. KEPT ELEVATED ON PILLOWS. AV SHUNT TO NICA WITH(+)BRUIT/THRILL. S/L TO RFA INTACT AND PATENT. PLAN OF CARE DISCUSSED. CALL LIGHT PLACED WITHIN EASY REACH. SIDERAILS UP X2.
--- NOTE | 2019-04-18 08:09 | NUR ---
VANCOMYCN TROUGH 20.6, PHARMACIST OLIVIA MADE AWARE STATED NO VANCOMYCIN GIVEN TODAY, NEXT VANCOMYCIN RANDOM DRAW WILL BE ON 04/20/19 AM LAB.
[2019-04-18 08:30] VITALS: BP 111/49
--- NOTE | 2019-04-18 09:05 | NUR ---
NORCO 1TAB PO GIVEN FOR RLE PAIN. WILL CONTINUE TO MONITOR.
[2019-04-18 11:25] VITALS: BP 113/52
--- NOTE | 2019-04-18 13:00 | NUR ---
SITTING UP IN BED NOTED ABLE TO TURN AND REPOSITION SELF IN BED. HAVING LUNCH. DENIES NAUSEA. NORCO 1 TAB PO GIVEN FOR RIGHT LEG WOUND PAIN. WILL CONTINUE TO MONITOR.
[2019-04-18 17:14] VITALS: BP 102/52
--- NOTE | 2019-04-18 18:14 | NUR ---
NO ANY DISTRESS THROUGHOUT SHIFT. VSS. NORCO GIVEN X3 FOR INCISION SITE PAIN TO RLE WITH GOOD RELIEF. WOUND VAC INPLACED, 100ML BROWISH DRAINAGE OUTPUT THROUGHOUT SHIFT. DRSG TO RLE CDI. SCD TO LLE MAINTAINED. S/L TO RFA INTACT AND PATENT.
--- NOTE | 2019-04-18 19:10 | NUR ---
RECEIVED PT FROM PREVIOUS SHIFT NURSE. PT AOX4. DENIES PIZANO/DIZZINESS. MED SURG PT, DENIES CP/PRESSURE. TRACE BLE EDEMA NOTED. ON 3L NC, DENIES SOB/DIFFICULTY BREATHING. PT OLIGURIC. NICA AV SHUNT NOTED. 2 INCISIONS ON RLE. WOUND VAC CONNECTED TO TOP INCISION. DSG IN PLACE ON BOTTOM INCISION, NO DRAINAGE NOTED. IV TO RFA, INTACT AND PATENT. BED IN LOWEST POSITION. CALL LIGHT WITHIN REACH. WILL CONTINUE TO MONITOR.
[2019-04-18 20:50] VITALS: BP 97/41
--- NOTE | 2019-04-19 02:30 | NUR ---
PT RESTING IN BED. RR EVEN AND UNLABORED. IN NO ACUTE DISTRESS. CALL LIGHT WIHTIN REACH. BED IN LOWEST POSITION. WILL CONTINUE TO MONITOR.
[2019-04-19 06:10] VITALS: BP 104/44
[2019-04-19 06:35] LABS: BASOPHIL % 0.6 % (0-2); PLATELET COUNT 254 x10^3mcL (130-400)
[2019-04-19 06:43] LABS: RED CELL DISTRIBUTION WIDTH 16.2 % (11.5-14.5)
[2019-04-19 06:46] LABS: CALCIUM 8.7 mg/dL (8.5-10.1); CARBON DIOXIDE 26.1 mmol/L (21-32); POTASSIUM SERUM 4.1 mmol/L (3.5-5.1)
[2019-04-19 06:54] LABS: CREATININE SERUM 7.7 mg/dL (0.6-1.0)
--- NOTE | 2019-04-19 08:03 | NUR ---
AT 0740 - RECEIVED PATIENT FROM NIGHT NURSE. AWAKE, ALERT AND ORIENTED. REPORTS PAIN 4/10 AT THIS TIME. WOUND VAC ON 125 MM SUCTION. ASPIRATE ONLY IN COLLECTION CONTAINER, NONE IN TUBING. DRESSINGS TO RLE ARE DRY AND INTACT. PATIENT SITTING UP IN BED FOR BREAKFAST.
[2019-04-19 09:01] VITALS: BP 108/44
[2019-04-19] MEDS ORDERED: VAN1I IV (09:57)
--- NOTE | 2019-04-19 13:03 | NUR ---
AT 1230 - SEEN BY WINDOW DRAPER FROM [facility]. THEY WILL LIASE WITH PATIENT'S INSURANCE. PATIENT C/O NAUSEA. MEDICATED WITH ZOFRAN PER EMAR.
[2019-04-19 13:20] VITALS: BP 106/43; BP 108/44
--- NOTE | 2019-04-19 13:41 | NUR ---
RECEIVED CALL FROM [facility]. SHE WAS PROVIDED WITH CLADIFICATIONS TO HER QUESTIONS.
--- NOTE | 2019-04-19 14:06 | NUR ---
SEEN BY DR SANTOS. UPDATED ON CURRENT PLAN FOR PATIENT TO TRANSFER TO [facility] AND PLAN FOR WOUND VAC TO BE TAKEN DOWN AT THE TIME OF PATIENT LEAVING THIS [facility] HAS A DIFFERENT WOUND VAC SYSTEM. THEY WILL THEN APPLY WOUND VAC WHEN PATIENT ARRIVES AT [facility]. IF PATIENT WILL NOT LEAVE TODAY, THEN WE WILL CHANGE WOUND VAC. IS AGREEABLE WITH THAT PLAN.
--- NOTE | 2019-04-19 15:19 | NUR ---
NO FURTHER NAUSEA. NOW MEDICATED WITH NORCO FOR PAIN IN RLE.
[2019-04-19 17:03] VITALS: BP 123/53
--- NOTE | 2019-04-19 18:23 | NUR ---
AT 1700 - SPOKE WOUND CARE NURSE. SHE WILL CHANGE WOUND VAC IN AM. LOWER LEG DRESSING CAN BE CHANGED. AT 1730 - DRESSING TO UPPER CALF WOUND CHANGED ORDERED. PHOTO DOCUMENTED. WOUND PACKED WITH SALINE MOISTENED KERLIX GAUZE. COVERED WITH ABD AND WRAPPED IN JERAD BANDAGE. PATIENT MADE COMFORTABLE. AT 1820 - EATING DINNER. NO FURTHER NAUSEA. PAIN APPEARS UNDER CONTROL. VSS. CONTACT ISOLATION MAINTAINED. WILL ENDORSE CARE TO NIGHT NURSE.
--- NOTE | 2019-04-19 20:00 | NUR ---
RECEIVED PT IN BED AAOX4, SPEECH CLEAR. ABLE TO MAKE NEEDS KNOWN. LUNG SOUNDS CLEAR. PT ON 3L O2 VIA N/C, NO RESPIRATORY DISTRESS NOTED. NO TELE MONITOR NEEDED, DENIES CHEST PAIN. BS ACTIVE IN ALL FOUR QUADS. NO ABD PAIN NOTED. ABD IS OBESE. NO FURTHER NAUSEA NOTED. PT IS OLIGURIC. HD PT, WITH AV SHUNT TO NICA WITH (+)BRUIT/THRILL. PT HAS GENERALIZED WEAKNESS, RLE WITH WOUND, TWO LARGE INCISIONS, RIGHT THIGH WITH WOUND VAC IN PLACE. RLE WITH DRESSING CDI. PT C/O PAIN, MEDICATED WITH NORCO ORDERED. IV TO RFA, HL. SHIFT ASSESSMENT COMPLETED. CALL LIGHT WITHIN REACH. BED IS IN LOWEST POSITION. FAMILY AT BEDSIDE. PT IS IN CONTACT ISOLATION, PRECAUTIONS ENFORCED. WILL CONTINUE TO MONITOR CLOSELY.
[2019-04-19 21:10] VITALS: BP 112/45
--- NOTE | 2019-04-19 22:00 | NUR ---
FSBS IS 238, 6 UNITS REGULAR INSULIN GIVEN ORDERED, LANTUS SCHEDULED WELL. ALL DUE MEDS GIVEN ORDERED. PT RESTING IN BED IN NO DISTRESS. WILL CONTINUE TO MONITOR CLOSELY.
[2019-04-20 05:44] VITALS: BP 99/51
--- NOTE | 2019-04-20 06:35 | NUR ---
FSBS IS 118. ALL DUE MEDS GIVEN ORDERED. PT C/O PAIN TO RLE, MEDICATED WITH NORCO ORDEREDM, SEE EMAR. ALL NEEDS TENDED TO. CALL LIGHT WITHIN REACH. WILL ENDORSE TO INCOMING SHIFT.
--- NOTE | 2019-04-20 07:30 | NUR ---
A&OX4, FOLLOWS COMMANDS. MEDSURG PATIENT, DENIES CHEST PAIN. PERIPHERAL PULSES PALPABLE/ WNO TRACE EDEMA RLE. ON LOVENOX. SCDs ON LLE. REMAINS ON 3L NC, LUNG SOUNDS CTA BILATERALLY. NORMOACTIVE BSX4. PLAN IS TO RECEIVE HD TODAY. NICA AV SHUNT PALPABLE FOR THRILL AND BRUIT AUSCULTATED. GENERALIZED WEAKNESS. AMBUALTES WITH ASSIST. RLE INCISIONS AND DRESSINGS ARE CDI. RFA IV SITE IS CDI. DENIES ANY PAIN AT THIS TIME. WILL CONTINUE TO MONITOR.
--- NOTE | 2019-04-20 08:01 | NUR ---
PHYSICAL THERAPY DAILY NOTES CO-SIGN All documentation done by the Reading Intervention Teacher for 04/19/19 has been reviewed. I agree with the documentation. Reviewed/Co-Signed by: Kassidy Ricardo PT Documentation Done by:MAXIMUS MACIAS PTA
[2019-04-20 08:21] LABS: BASOPHIL % 0.5 % (0-2); PLATELET COUNT 265 x10^3mcL (130-400)
[2019-04-20 08:24] LABS: RED CELL DISTRIBUTION WIDTH 15.8 % (11.5-14.5)
[2019-04-20 08:43] LABS: CALCIUM 8.5 mg/dL (8.5-10.1); CARBON DIOXIDE 28.3 mmol/L (21-32); POTASSIUM SERUM 4.4 mmol/L (3.5-5.1)
[2019-04-20 09:04] VITALS: BP 106/43
[2019-04-20 09:07] LABS: CREATININE SERUM 9.3 mg/dL (0.6-1.0)
--- NOTE | 2019-04-20 14:37 | NUR ---
PHYSICAL THERAPY NOTE PHYSICAL THERAPY SESSION ON HOLD, PATIENT ON DIALYSIS
[2019-04-20 16:23] VITALS: BP 101/48
--- NOTE | 2019-04-20 19:57 | NUR ---
RCIEVED A CALL FROM [facility] TO CONFIRM PT IS IN ROOM 260B AND THAT POST HOLE DIGGER IS POSTPONE FOR 30MINS.
--- NOTE | 2019-04-20 20:34 | NUR ---
REPORT GIVEN TO [facility]. PT IN NO DISTRESS WHEN LEAVING. ALL BELONINGS WITH PT. DRESSING ON R UPPER THIGH WAS SECURED FOR TRANSPORTATION. IV WAS LEFT IN. SALINE LOCKED.
--- NOTE | 2019-04-20 20:35 | NUR ---
PT IS A/O x4. MED SURG. DENIES ANY CHEST PAIN OR PRESSURE. PULSES ARE PRESENT. TRACE EDEMA ON RLE. LUNGS CLEAR IN ALL FEILDS. ON 2L NC. EQAUL CHEST RISE AND FALL. NO SIGN OF RESP DISTRESS. BOWEL SOUNDS PRESENT x4. HD PT. AV SHUNT ON NICA. WEAKNESS ON RLE. DRESSING ON RLE IS WAS REINFORCED WITH AN JERAD WRAP. DENIES ANY PAIN AT THIS TIME. SALINE LOCKED ON RFA INTACT AND PATENT. ON CONTACT ISOLATION. PT IS AWARE OF TRANSFER TONIGHT TO [facility]. BED IS AT LOWEST SETTING. CALL LIGHT WITHIN REACH. WILL CONTINUE TO MONITOR.
== END 2019-04-20 20:59 | DRG 853 ==
LOC: ED 16:00 → MU 21:37
PROVIDERS: Emergency Medicine; General Practice; Internal Medicine; Surgery; ADMIT Internal Medicine
PROC: 0J9N0ZZ Drainage of Right Lower Leg Subcutaneous Tissue and Fascia, Open Approach (ICD-10-PCS; 2019-04-08)
PROC: 0J9L0ZZ Drainage of Right Upper Leg Subcutaneous Tissue and Fascia, Open Approach (ICD-10-PCS; 2019-04-08)
PROC: 0J9L00Z Drainage of Right Upper Leg Subcutaneous Tissue and Fascia with Drainage Device, Open Approach (ICD-10-PCS; principal; 2019-04-08 09:30)
PROC: 0J9N0ZZ Drainage of Right Lower Leg Subcutaneous Tissue and Fascia, Open Approach (ICD-10-PCS; 2019-04-14)
PROC: 0J9L0ZZ Drainage of Right Upper Leg Subcutaneous Tissue and Fascia, Open Approach (ICD-10-PCS; 2019-04-14)
PROC: 2W0 Placement, Anatomical Regions, Change (ICD-10-PCS; 2019-04-16)
DX: A41.9 Sepsis, unspecified organism (principal); N18.6 End stage renal disease; M00.9 Pyogenic arthritis, unspecified; L03.115 Cellulitis of right lower limb; I12.0 Hypertensive chronic kidney disease with stage 5 chronic kidney disease or end stage renal disease; E87.1 Hypo-osmolality and hyponatremia; E11.65 Type 2 diabetes mellitus with hyperglycemia; E11.22 Type 2 diabetes mellitus with diabetic chronic kidney disease; D63.1 Anemia in chronic kidney disease; E78.5 Hyperlipidemia, unspecified; E03.9 Hypothyroidism, unspecified; Z99.2 Dependence on renal dialysis; Z79.4 Long term (current) use of insulin; Z68.29 Body mass index [BMI] 29.0-29.9, adult; Z22.322 Carrier or suspected carrier of Methicillin resistant Staphylococcus aureus
CPT/HCPCS: 36600; 82962; 97110-GP; 97116-GP; 97530-GP; G0378; J0690; J0696; J0885-EC; J1170; J1650; J1815; J2001; J2020; J2250; J2270; J2405; J2543; J2704; J3010; J3370; J3490; J7030; J7040; J7042; J7050; J7060; J7120; P9016; Q0092; Q9967